=== PATIENT | female | born 1950 | race Caucasian/White ===

== ENCOUNTER 2021-05-17 10:30 | Outpatient (RCR) | payer MEDICARE, OTHER, SELFPAY ==
--- NOTE | 2021-03-28 23:14 | P.PNPS_ITS ---
TMS Daily Progress Note Daily TMS Progress Note Date of Service: 03/28/21 Week #: 2 Treatment #(12-04): 2 PHQ-9 Pre-Treatment (12-01): 18 PHQ-9 Most Recent (12-01): 18 Reviewed: TMS Tech Note Reviewed Verification: I have reviewed the TMS Painting Supervisor Note and agree with the contents. The patient remains a candidate to continue TMS treatment per pro tocol.
--- NOTE | 2021-03-29 23:07 | P.PNPS_ITS ---
TMS Daily Progress Note Daily TMS Progress Note Date of Service: 03/29/21 Week #: 1 Treatment #(12-04): 3 PHQ-9 Pre-Treatment (12-01): 18 PHQ-9 Most Recent (12-01): 18 Reviewed: TMS Tech Note Reviewed Verification: I have reviewed the TMS Supervisor Cigar Making Hand Note and agree with the contents. The patient remains a candidate to continue TMS treatment per pro tocol.
--- NOTE | 2021-03-30 07:53 | P.PNPS_ITS ---
TMS Daily Progress Note Daily TMS Progress Note Date of Service: 03/30/21 Week #: 1 Treatment #(12-04): 4 PHQ-9 Pre-Treatment (12-01): 18 PHQ-9 Most Recent (12-01): 18 Reviewed: TMS Tech Note Reviewed Verification: I have reviewed the TMS Health And Safety Coordinator Note and agree with the contents. The patient remains a candidate to continue TMS treatment per pro tocol.
--- NOTE | 2021-03-31 22:03 | HO.TMSDAILY2 ---
TMS Daily Progress Note Daily TMS Progress Note Date of Service: 03/31/21 Week #: 1 Treatment #(12-04): 5 PHQ-9 Pre-Treatment (12-01): 18 PHQ-9 Most Recent (12-01): 18 Reviewed: TMS Tech Note Reviewed Verification: I have reviewed the TMS Fish Cake Maker Note and agree with the contents. The patient remains a candidate to continue TMS treatment per protocol.
--- NOTE | 2021-04-01 23:02 | HO.TMSDAILY2 ---
TMS Daily Progress Note Daily TMS Progress Note Date of Service: 04/01/21 Week #: 2 Treatment #(12-04): 6 PHQ-9 Pre-Treatment (12-01): 18 PHQ-9 Most Recent (12-01): 18 Reviewed: TMS Tech Note Reviewed Verification: I have reviewed the TMS Fabricator Assembler Metal Products Note and agree with the contents. The patient remains a candidate to continue TMS treatment per protocol.
--- NOTE | 2021-04-05 22:00 | HO.TMSDAILY2 ---
TMS Daily Progress Note Daily TMS Progress Note Date of Service: 04/05/21 Week #: 2 Treatment #(12-04): 7 PHQ-9 Pre-Treatment (12-01): 18 PHQ-9 Most Recent (12-01): 18 Reviewed: TMS Tech Note Reviewed Verification: I have reviewed the TMS Engraving Press Operator Note and agree with the contents. The patient remains a candidate to continue TMS treatment per protocol.
--- NOTE | 2021-04-06 21:49 | HO.TMSDAILY2 ---
TMS Daily Progress Note Daily TMS Progress Note Date of Service: 04/06/21 Week #: 2 Treatment #(12-04): 8 PHQ-9 Pre-Treatment (12-01): 18 PHQ-9 Most Recent (12-01): 18 Reviewed: TMS Tech Note Reviewed Verification: I have reviewed the TMS Cloth Boil Off Machine Operator Note and agree with the contents. The patient remains a candidate to continue TMS treatment per protocol.
--- NOTE | 2021-04-07 20:48 | P.PNPS_ITS ---
TMS Daily Progress Note Daily TMS Progress Note Date of Service: 04/07/21 Week #: 2 Treatment #(12-04): 9 PHQ-9 Pre-Treatment (12-01): 18 PHQ-9 Most Recent (12-01): 18 Reviewed: TMS Tech Note Reviewed Verification: I have reviewed the TMS Speech Pathology Supervisor Note and agree with the contents. The patient remains a candidate to continue TMS treatment per pro tocol.
--- NOTE | 2021-04-08 22:45 | HO.TMSDAILY2 ---
TMS Daily Progress Note Daily TMS Progress Note Date of Service: 04/08/21 Week #: 2 Treatment #(12-04): 10 PHQ-9 Pre-Treatment (12-01): 18 PHQ-9 Most Recent (12-01): 18 Reviewed: TMS Tech Note Reviewed Verification: I have reviewed the TMS Charging Plug Placer Note and agree with the contents. The patient remains a candidate to continue TMS treatment per protocol.
--- NOTE | 2021-04-12 21:34 | HO.TMSDAILY2 ---
TMS Daily Progress Note Daily TMS Progress Note Date of Service: 04/12/21 Week #: 3 Treatment #(12-04): 12 PHQ-9 Pre-Treatment (12-01): 18 PHQ-9 Most Recent (12-01): 18 Reviewed: TMS Tech Note Reviewed Verification: I have reviewed the TMS Skilled Laborer Note and agree with the contents. The patient remains a candidate to continue TMS treatment per protocol.
--- NOTE | 2021-04-13 12:20 | HO.TMSDAILY2 ---
TMS Daily Progress Note Daily TMS Progress Note Date of Service: 04/13/21 Week #: 3 Treatment #(12-04): 13 PHQ-9 Pre-Treatment (12-01): 18 PHQ-9 Most Recent (12-01): 18 Reviewed: TMS Tech Note Reviewed Verification: I have reviewed the TMS Anesthesiologist Assistant Note and agree with the contents. The patient remains a candidate to continue TMS treatment per protocol.
--- NOTE | 2021-04-14 23:07 | P.PNPS_ITS ---
TMS Daily Progress Note Daily TMS Progress Note Date of Service: 04/14/21 Week #: 3 Treatment #(12-04): 14 PHQ-9 Pre-Treatment (12-01): 18 PHQ-9 Most Recent (12-01): 18 Reviewed: TMS Tech Note Reviewed Verification: I have reviewed the TMS Insulation Packer Note and agree with the contents. The patient remains a candidate to continue TMS treatment per pr otocol.
--- NOTE | 2021-04-18 22:14 | HO.TMSDAILY2 ---
TMS Daily Progress Note Daily TMS Progress Note Date of Service: 04/18/21 Week #: 4 Treatment #(12-04): 16 PHQ-9 Pre-Treatment (12-01): 18 PHQ-9 Most Recent (12-01): 18 Reviewed: TMS Tech Note Reviewed Verification: I have reviewed the TMS Beach Attendant Note and agree with the contents. The patient remains a candidate to continue TMS treatment per protocol.
--- NOTE | 2021-04-19 23:45 | HO.TMSDAILY2 ---
TMS Daily Progress Note Daily TMS Progress Note Date of Service: 04/19/21 Week #: 4 Treatment #(12-04): 17 PHQ-9 Pre-Treatment (12-01): 18 PHQ-9 Most Recent (12-01): 18 Reviewed: TMS Tech Note Reviewed Verification: I have reviewed the TMS Nurse Case Management Note and agree with the contents. The patient remains a candidate to continue TMS treatment per protocol.
--- NOTE | 2021-04-20 23:24 | HO.TMSDAILY2 ---
TMS Daily Progress Note Daily TMS Progress Note Date of Service: 04/26/21 Week #: 4 Treatment #(12-04): 18 PHQ-9 Pre-Treatment (12-01): 18 PHQ-9 Most Recent (12-01): 18 Reviewed: TMS Tech Note Reviewed Verification: I have reviewed the TMS Camelid Fiber Sorter Note and agree with the contents. The patient remains a candidate to continue TMS treatment per protocol.
--- NOTE | 2021-04-26 22:59 | HO.TMSDAILY2 ---
TMS Daily Progress Note Daily TMS Progress Note Date of Service: 04/21/21 Week #: 4 Treatment #(12-04): 19 PHQ-9 Pre-Treatment (12-01): 18 PHQ-9 Most Recent (12-01): 18 Reviewed: TMS Tech Note Reviewed Verification: I have reviewed the TMS Flame Annealing Machine Operator Note and agree with the contents. The patient remains a candidate to continue TMS treatment per protocol.
--- NOTE | 2021-04-26 23:02 | HO.TMSDAILY2 ---
TMS Daily Progress Note Daily TMS Progress Note Date of Service: 04/21/21 Week #: 4 Treatment #(12-04): 19 PHQ-9 Pre-Treatment (12-01): 18 PHQ-9 Most Recent (12-01): 18 Reviewed: TMS Tech Note Reviewed Verification: I have reviewed the TMS Plant Operations Manager Note and agree with the contents. The patient remains a candidate to continue TMS treatment per protocol.
--- NOTE | 2021-04-26 23:03 | P.PNPS_ITS ---
TMS Daily Progress Note Daily TMS Progress Note Date of Service: 04/22/21 Week #: 4 Treatment #(12-04): 20 PHQ-9 Pre-Treatment (12-01): 18 PHQ-9 Most Recent (12-01): 18 Reviewed: TMS Tech Note Reviewed Verification: I have reviewed the TMS Reclamation Supervisor Note and agree with the contents. The patient remains a candidate to continue TMS treatment per pr otocol.
--- NOTE | 2021-04-26 23:05 | P.PNPS_ITS ---
TMS Daily Progress Note Daily TMS Progress Note Date of Service: 04/26/21 Week #: 5 Treatment #(12-04): 22 PHQ-9 Pre-Treatment (12-01): 18 PHQ-9 Most Recent (12-01): 18 Reviewed: TMS Tech Note Reviewed Verification: I have reviewed the TMS Family Support Coordinator Note and agree with the contents. The patient remains a candidate to continue TMS treatment per pr otocol.
--- NOTE | 2021-04-28 11:30 | P.PNPS_ITS ---
TMS Daily Progress Note Daily TMS Progress Note Date of Service: 04/27/21 Week #: 5 Treatment #(12-04): 23 PHQ-9 Pre-Treatment (12-01): 18 PHQ-9 Most Recent (12-01): 18 Reviewed: TMS Tech Note Reviewed Verification: I have reviewed the TMS Registered Nurse Bone Marrow Transplant Note and agree with the contents. The patient remains a candidate to continue TMS treatment per pr otocol.
--- NOTE | 2021-04-28 11:32 | HO.TMSDAILY2 ---
TMS Daily Progress Note Daily TMS Progress Note Date of Service: 04/28/21 Week #: 5 Treatment #(12-04): 24 PHQ-9 Pre-Treatment (12-01): 18 PHQ-9 Most Recent (12-01): 18 Reviewed: TMS Tech Note Reviewed Verification: I have reviewed the TMS Secondary Special Education Teacher Note and agree with the contents. The patient remains a candidate to continue TMS treatment per protocol.
--- NOTE | 2021-04-28 13:15 | HO.TMSDAILY2 ---
TMS Daily Progress Note Daily TMS Progress Note Date of Service: 04/25/21 Week #: 5 Treatment #(12-04): 21 PHQ-9 Pre-Treatment (12-01): 18 PHQ-9 Most Recent (12-01): 7 Reviewed: TMS Tech Note Reviewed Verification: I have reviewed the TMS Inspector Pawnshop Detail Note and agree with the contents. The patient remains a candidate to continue TMS treatment per protocol.
--- NOTE | 2021-04-28 22:34 | HO.TMSDAILY2 ---
TMS Daily Progress Note Daily TMS Progress Note Date of Service: 04/28/21 Week #: 5 Treatment #(12-04): 24 PHQ-9 Pre-Treatment (12-01): 18 PHQ-9 Most Recent (12-01): 7 Reviewed: TMS Tech Note Reviewed Verification: I have reviewed the TMS [place] Ma[place] Note and agree with the contents. The patient remains a candidate to continue TMS treatment per protocol.
--- NOTE | 2021-04-29 22:48 | P.PNPS_ITS ---
TMS Daily Progress Note Daily TMS Progress Note Date of Service: 04/29/21 Week #: 5 Treatment #(12-04): 25 PHQ-9 Pre-Treatment (12-01): 18 PHQ-9 Most Recent (12-01): 7 Reviewed: TMS Tech Note Reviewed Verification: I have reviewed the TMS Senior Major Gifts Officer Note and agree with the contents. The patient remains a candidate to continue TMS treatment per p yani.
--- NOTE | 2021-05-02 22:22 | HO.TMSDAILY2 ---
TMS Daily Progress Note Daily TMS Progress Note Date of Service: 05/02/21 Week #: 6 Treatment #(12-04): 26 PHQ-9 Pre-Treatment (12-01): 18 PHQ-9 Most Recent (12-01): 7 Reviewed: TMS Tech Note Reviewed Verification: I have reviewed the TMS Evening Or Night Nurse Supervisor Note and agree with the contents. The patient remains a candidate to continue TMS treatment per protocol.
--- NOTE | 2021-05-03 22:28 | HO.TMSDAILY2 ---
TMS Daily Progress Note Daily TMS Progress Note Date of Service: 05/03/21 Week #: 6 Treatment #(12-04): 27 PHQ-9 Pre-Treatment (12-01): 18 PHQ-9 Most Recent (12-01): 7 Reviewed: TMS Tech Note Reviewed Verification: I have reviewed the TMS Salesperson Shoes Note and agree with the contents. The patient remains a candidate to continue TMS treatment per protocol.
--- NOTE | 2021-05-04 22:13 | P.PNPS_ITS ---
TMS Daily Progress Note Daily TMS Progress Note Date of Service: 05/04/21 Week #: 6 Treatment #(12-04): 28 PHQ-9 Pre-Treatment (12-01): 18 PHQ-9 Most Recent (12-01): 7 Reviewed: TMS Tech Note Reviewed Verification: I have reviewed the TMS Construction Safety Consultant Note and agree with the contents. The patient remains a candidate to continue TMS treatment per p yani.
--- NOTE | 2021-05-05 23:06 | HO.TMSDAILY2 ---
TMS Daily Progress Note Daily TMS Progress Note Date of Service: 05/05/21 Week #: 6 Treatment #(12-04): 29 PHQ-9 Pre-Treatment (12-01): 18 PHQ-9 Most Recent (12-01): 7 Reviewed: TMS Tech Note Reviewed Verification: I have reviewed the TMS Business Systems Architect Note and agree with the contents. The patient remains a candidate to continue TMS treatment per protocol.
--- NOTE | 2021-05-06 14:29 | HO.TMSDAILY2 ---
TMS Daily Progress Note Daily TMS Progress Note Date of Service: 05/06/21 Week #: 6 Treatment #(12-04): 30 PHQ-9 Pre-Treatment (12-01): 18 PHQ-9 Most Recent (12-01): 7 Reviewed: TMS Tech Note Reviewed Verification: I have reviewed the TMS Orderly Note and agree with the contents. The patient remains a candidate to continue TMS treatment per protocol.
--- NOTE | 2021-05-06 23:32 | P.PNPS_ITS ---
TMS Daily Progress Note Daily TMS Progress Note Date of Service: 05/06/21 Week #: 6 Treatment #(12-04): 30 PHQ-9 Pre-Treatment (12-01): 18 PHQ-9 Most Recent (12-01): 7 Reviewed: TMS Tech Note Reviewed Verification: I have reviewed the TMS Agricultural Production Engineer Note and agree with the contents. The patient remains a candidate to continue TMS treatment per p yani.
--- NOTE | 2021-05-09 14:31 | W.PM.TMSCONS ---
History of Present Illness General Data Date of Service: 03/23/21 Reason for consult: treatment resistant depression Requesting provider: Alan Martin History of Present Illness the patient is a 71-year-old female with a long history of recurrent depression over the past year or more significantly treatment resistant depression with history of panic attacks originally associated with Crohn's disease. Meds/Allergies Allergies Allergies Allergy/AdvReac Type Severity Reaction Status Date / Time azathioprine [Imuran] Allergy Unknown Pancreatiti Verified 06/03/20 00:00 s metronidazole [Flagyl] Allergy Unknown Verified 06/03/20 00:00 Assessment & Plan Greater than 50% of the session was spent on counseling and/or coordination of care
--- NOTE | 2021-05-10 22:01 | P.PNPS_ITS ---
TMS Daily Progress Note Daily TMS Progress Note Date of Service: 05/10/21 Week #: 7 Treatment #(12-04): 31 PHQ-9 Pre-Treatment (12-01): 18 PHQ-9 Most Recent (12-01): 7 Reviewed: TMS Tech Note Reviewed Verification: I have reviewed the TMS Inspector Watch Parts Note and agree with the contents. The patient remains a candidate to continue TMS treatment per p yani.
--- NOTE | 2021-05-11 17:59 | HO.TMSDAILY2 ---
TMS Daily Progress Note Daily TMS Progress Note Date of Service: 05/11/21 Week #: 7 Treatment #(12-04): 32 PHQ-9 Pre-Treatment (12-01): 18 PHQ-9 Most Recent (12-01): 7 Reviewed: TMS Tech Note Reviewed Verification: I have reviewed the TMS Private Branch Exchange Service Advisor Note and agree with the contents. The patient remains a candidate to continue TMS treatment per protocol.
--- NOTE | 2021-05-12 17:59 | HO.TMSDAILY2 ---
TMS Daily Progress Note Daily TMS Progress Note Date of Service: 05/12/21 Week #: 7 Treatment #(12-04): 33 PHQ-9 Pre-Treatment (12-01): 18 PHQ-9 Most Recent (12-01): 7 Reviewed: TMS Tech Note Reviewed Verification: I have reviewed the TMS Investment Associate Note and agree with the contents. The patient remains a candidate to continue TMS treatment per protocol.
--- NOTE | 2021-05-13 23:56 | HO.TMSDAILY2 ---
TMS Daily Progress Note Daily TMS Progress Note Date of Service: 05/16/21 Week #: 8 Treatment #(12-04): 34 PHQ-9 Pre-Treatment (12-01): 18 PHQ-9 Most Recent (12-01): 7 Reviewed: TMS Tech Note Reviewed Verification: I have reviewed the TMS Small Machine Bindery Operator Note and agree with the contents. The patient remains a candidate to continue TMS treatment per protocol.
--- NOTE | 2021-05-16 22:33 | HO.TMSDAILY2 ---
TMS Daily Progress Note Daily TMS Progress Note Date of Service: 05/16/21 Week #: 8 Treatment #(12-04): 35 PHQ-9 Pre-Treatment (12-01): 18 PHQ-9 Most Recent (12-01): 7 Reviewed: TMS Tech Note Reviewed Verification: I have reviewed the TMS Director Of Revenue Note and agree with the contents. The patient remains a candidate to continue TMS treatment per protocol.
--- NOTE | 2021-05-17 23:20 | HO.TMSDAILY2 ---
TMS Daily Progress Note Daily TMS Progress Note Date of Service: 05/17/21 Week #: 7 Treatment #(12-04): 36 PHQ-9 Pre-Treatment (12-01): 18 PHQ-9 Most Recent (12-01): 7 Reviewed: TMS Tech Note Reviewed Verification: I have reviewed the TMS Ticket Worker Note and agree with the contents. The patient remains a candidate to continue TMS treatment per protocol.
--- NOTE | 2021-05-17 23:20 | HO.TMSDCTER ---
TMS Discharge-Termination Chart Review Treatments Completed: 36 Initial MT%: 80% Final MT%: 120% Was Remapping Required: Yes Clinical Evaluation/Review PHQ-9 Pre-Treatment (1-): 18 PHQ-9 Post-Treatment (-): 6 BRADEN-7 Pre-Treatment (0-21): 17 BRADEN-7 Most Recent (0-21): 6 CGI-I Initial: 0 = Not Assessed CGI-I Post Treatment: 1 = Very Much Improved Q-LES-Q-SF Pre-Treatment: 38 Q-LES-Q-SF Post-Treatment: 55 Adverse Effects Local Pain/Discomfort: Yes Headache: No Facial Pain: No Seizure: No Impression Impression: PT MUCH IMPROVED TOLERATED [place] Recommendations TMS: Discontinue Medication Changes: OLANZAPINE TRINTELLIX Follow-up w/ Prescriber: HALEY
--- NOTE | 2021-05-22 19:06 | P.PNPS_ITS ---
TMS Daily Progress Note Daily TMS Progress Note Date of Service: 03/25/21 Week #: 1 Treatment #(12-04): 1 PHQ-9 Pre-Treatment (12-01): 20 PHQ-9 Most Recent (12-01): 20 Reviewed: TMS Tech Note Reviewed Verification: late entry for 03/25/21 mapping completed I have reviewed the TMS Public Utilities Sales Representative Note and agree with the contents. The patient remains a candidate to continue TMS treatment per protocol.
--- NOTE | 2021-06-05 19:43 | W.PM.TMSCONS ---
History of Present Illness General Data Date of Service: 03/23/21 Reason for consult: TMS EVAL Requesting provider: Alan Martin History of Present Illness THE PATIENT IS A 71-YEAR-OLD FEMALE WHO HISTORY OF PANIC DISORDER, GENERALIZED ANXIETY AND RECURRENT DEPRESSION. HAS BEEN IN A SIGNIFICANT DEPRESSION FOR AT LEAST THE PAST YEAR HER. HER SHE HAS HAD LOW ENERGY DIFFICULTY FUNCTIONING OFTEN SPENDING MUCH OF HER TIME IN THE HOUSE. CONSTANT ANXIETY AND WORRY AND RUMINATION. PERIODS WHERE SHE FOUND IT EXTREMELY DIFFICULT TO CONCENTRATE AND PUT HER THOUGHTS TOGETHER. SHE HAS HAD DIFFICULTY SINCE SHELTER AND WENT OFF SERTRALINE AND HAS NOT BEEN STABLE SINCE THEN. SHE HAS HAD SIGNIFICANT TRIALS SERTRALINE, FLUOXETINE HAD AGITATION, MIRTAZAPINE WAS UNABLE TO TOLERATE AND NORTRIPTYLINE WHICH WAS ALSO NOT SUCCESSFUL. PATIENT HAD ANTIPSYCHOTIC AUGMENTATION WITH SEROQUEL WHICH WAS ALSO NOT EFFECTIVE. PATIENT CURRENTLY HAS BEEN ON TRINTELLIX UP TO 10 MG ALPRAZOLAM DAVONTE 0.25 T.I.D. ATENOLOL HER TO FOR ANXIETY WHICH HAS BEEN SOMEWHAT HELPFUL. CURRENTLY ON OLANZAPINE TO 5 MG A DAY. SHE CONTINUES TO BE HOPELESS HELPLESS MINIMALLY FUNCTIONING WITH NO QUALITY OF LIFE . TRIALS OF COGNITIVE BEHAVIOR THERAPY MEDITATION BEHAVIORAL ACTIVATION HAVE ONLY BEEN PARTIALLY SUCCESSFUL. SEEING DR. ACOSTA FOR PSYCHOTHERAPY Past Psychiatric History/Medication Trials: PAST HISTORY OF PANIC DISORDER CHRONIC ANXIETY SYMPTOMS AND DYSTHYMIA BUT WAS ABLE TO FUNCTION AT WORK AND AT HOME GENERALLY WAS MANAGEABLE [facility] Medical History (Updated 06/05/21 @ 20:00 by Alan Martin MD) Generalized anxiety disorder Panic disorder [episodic paroxysmal anxiety] Narrative: HISTORY OF CROHN'S DISEASE QUESTION PANCREATIC NODULE Narrative: HISTORY OF RESECTION Family History: HISTORY OF DEPRESSION AND ANXIETY Social History: PATIENT LIVES WITH HER HAS 2 CHILDREN 1 IN [place]. HAS A SISTER THAT SHE PARTIALLY SUPPORTS IN [place]. 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 [employer] Substance History: NONE Trauma History: NONE Meds/Allergies Allergies Allergies Allergy/AdvReac Type Severity Reaction Status Date / Time azathioprine [Imuran] Allergy Unknown Pancreatiti Verified 06/03/20 00:00 s metronidazole [Flagyl] Allergy Unknown Verified 06/03/20 00:00 Mental Status Exam Mental Status Exam Patient Appearance: Well Grooomed Patient Orientation: Person, Place, Time and Situation Level of Consciousness: Awake and Appropriate Patient Behavior: Appropriate and Anxious Mood Description: Anxious, Sad and Apprehensive Affect Description: Depressed, Anxious and Apprehensive Patient Cognition Impaired: No Ability to Follow Directions: Good Speech Pattern: Clear Memory Description: Intact Hallucinations: None Delusions: Not Present Thought Process: Intact and Rumination Thought Content: positive for Obsessional Thoughts, negative for Suicidal Ideation or positive for Homicidal Ideation Depressive Symptoms: Increased Anxiety, Insomnia, Loss of Int. in Activity, Feelings of Worthlessness, Hopelessness and Difficulty Concentrating Judgement: Good Assessment & Plan Assessment & Plan (1) Depression, major, severe recurrence: Status: Acute Code(s): F33.2 - Major depressive disorder, recurrent severe without psychotic features (2) Generalized anxiety disorder: Status: Acute Code(s): F41.1 - Generalized anxiety disorder (3) Panic disorder [episodic paroxysmal anxiety]: Status: Acute Code(s): F41.0 - Panic disorder [episodic paroxysmal anxiety] Recommendations: PATIENT HAS A DIAGNOSIS OF MAJOR DEPRESSION RECURRENT SEVERE THAT HAS FOR A YEAR NOW NOT RESPONDED TO MULTIPLE PER MUTATIONS OF MEDICATION BEHAVIORAL ACTIVATION AND THERAPY. THERE ARE NO CONTRAINDICATIONS TO TMS NO HISTORY OF HEAD OR NECK SURGERY BRAIN LESION SEIZURE DISORDER PACEMAKER WERE COCHLEAR IMPLANT. PATIENT NEEDED MUCH REASSURANCE REGARDING TMS QUESTIONS ANSWERED REVIEWED WITH PATIENT AND CONTINUE TRINTELLIX LOW-DOSE ZYPREXA SCHEDULE FOR TMS AVAILABLE Greater than 50% of the session was spent on counseling and/or coordination of care
== END 2021-05-17 15:19 | disposition home or self-care (01) ==
LOC: HO.PTMS 10:30
PROVIDERS: Visit Provider Psychiatry & Neurology Psychiatry
DX: F33.2 Major depressive disorder, recurrent severe without psychotic features (principal); F41.1 Generalized anxiety disorder; F41.0 Panic disorder [episodic paroxysmal anxiety]
CPT/HCPCS: 90867; 90868

== ENCOUNTER 2021-09-19 16:15 | Outpatient (REF) | payer MEDICARE, OTHER, SELFPAY ==
[2021-09-19 16:52] LABS: Estimated Average Glucose 100 mg/dL; Hemoglobin A1c % 5.1 %
== END 2021-09-19 16:16 | disposition home or self-care (01) ==
LOC: HO.LAB 16:15
PROVIDERS: Visit Provider Psychiatry & Neurology Psychiatry
DX: F41.0 Panic disorder [episodic paroxysmal anxiety] (principal)
CPT/HCPCS: 36415; 83036

== ENCOUNTER 2022-09-05 12:22 | Outpatient (REF) | payer MEDICARE, OTHER, SELFPAY ==
[2022-09-05 13:11] LABS: Alanine Aminotransferase 7 U/L (0-31); Albumin Level 4.1 g/dL (3.5-5.0); Alkaline Phosphatase 61 U/L (39-117); Anion Gap 16 (12-20); Aspartate Amino Transferase 14 U/L (5-31); Blood Urea Nitrogen 14 mg/dL (9-16); Calcium 9.8 mg/dL (8.4-10.2); Carbon Dioxide 26 mmol/L (22-29); Chloride 102 mmol/L (96-108); Estimated Glomerular Filt Rate > 60; Glucose Random 125 mg/dL (60-115); Potassium 4.3 mmol/L (3.3-5.1); Sodium 140 mmol/L (135-145); Total Protein 6.7 g/dL (6.5-8.0)
[2022-09-05 13:28] LABS: Bilirubin Total 0.3 mg/dL (0.0-1.0)
== END 2022-09-05 12:23 | disposition home or self-care (01) ==
LOC: HO.LAB 12:22
PROVIDERS: PCP Internal Medicine; Visit Provider Psychiatry & Neurology Psychiatry
DX: K50.90 Crohn's disease, unspecified, without complications (principal)
CPT/HCPCS: 36415; 80053; 99212

== ENCOUNTER → 2022-11-20 11:05 | Outpatient (BNVA) | payer MEDICARE, OTHER, SELFPAY | PROVIDERS: PCP Internal Medicine; Visit Provider Psychiatry & Neurology Psychiatry | DX: F33.2 Major depressive disorder, recurrent severe without psychotic features (principal); F41.1 Generalized anxiety disorder; F41.0 Panic disorder [episodic paroxysmal anxiety]; E04.1 Nontoxic single thyroid nodule; K50.90 Crohn's disease, unspecified, without complications | CPT/HCPCS: 99212 ==

== ENCOUNTER → 2023-02-05 16:23 | Outpatient (BNVA) | payer MEDICARE, OTHER, SELFPAY | PROVIDERS: PCP Internal Medicine; Visit Provider Psychiatry & Neurology Psychiatry | DX: F41.0 Panic disorder [episodic paroxysmal anxiety] (principal); F41.1 Generalized anxiety disorder; F33.2 Major depressive disorder, recurrent severe without psychotic features; F33.40 Major depressive disorder, recurrent, in remission, unspecified; K50.90 Crohn's disease, unspecified, without complications | CPT/HCPCS: 99212 ==

== ENCOUNTER 2023-05-21 15:25 | Outpatient (AMB) | payer MEDICARE, OTHER, SELFPAY ==
--- NOTE | 2023-05-21 16:36 | MHC.OFFVISPS ---
Intake Intake Visit Reasons: depression Allergies azathioprine [Imuran] Allergy (Unknown, Verified 06/03/20 00:00) Pancreatitis metronidazole [Flagyl] Allergy (Unknown, Verified 06/03/20 00:00) Medication List - Last Reconciled 05/21/23 by Alan Martin MD alprazolam 1/2-1 orally 3 times a day PRN; atenolol 25 mg PO DAILY cyanocobalamin (vitamin B-12) 1,000 mcg subcut estradiol (Yuvafem) 0 mcg vaginal DAILY folic acid 1 mg PO DAILY mesalamine ER (Pentasa) 1,000 mg PO TID olanzapine (Zyprexa) 2.5 mg PO DAILY 30 days vortioxetine (Trintellix) 20 mg PO DAILY HPI- Psychiatric Chief Complaint: depression HPI Narrative: Patient has had more symptoms of dysthymia more difficulty enjoying things motivating herself and preoccupation. More anxiety with eating and preoccupation with food. She does have chronic mild symptoms of pros state Crohn's disease which might be contributing factor had been doing better on low-dose olanzapine had done better after TMS Tx appears to be more dysthymic PHQ 917 clearly is having more been impaired quality of life and functioning she is taking L methyl folate Past Psychiatric History: The patient has a history of chronic anxiety panic disorder and depression which developed after surgery for Crohn's disease a partial colon resection many years ago. Was stable for many years then developed a treatment resistant agitated depression that eventually responded to a combination of Trintellix 20 mg olanzapine alprazolam and TMS otherwise had failed multiple other antidepressant trial Mental Status Exam Mental Status Exam Patient Appearance: Well Grooomed Patient Orientation: Person, Place, Time and Situation Level of Consciousness: Awake and Appropriate Patient Behavior: Appropriate Mood Description: Depressed, Blunted and Apprehensive Affect Description: Appropriate and Constricted Patient Cognition Impaired: No Ability to Follow Directions: Good Speech Pattern: Clear Memory Description: Intact Hallucinations: None Delusions: Not Present Thought Process: Intact and Goal Oriented Thought Content: positive for Goal Oriented, positive for Preoccupation, negative for Suicidal Ideation or negative for Homicidal Ideation Depressive Symptoms: Increased Irritability, Difficulty Sleeping, Loss of Int. in Activity, Hopelessness, Increased Fatigue, Loss of Energy and Difficulty Concentrating Judgement and Insight: Morbid preoccupation difficulty managing her time and enjoying things Assessment and Plan Assessment & Plan (1) Major depressive disorder, recurrent: Status: Acute Code(s): F33.9 - Major depressive disorder, recurrent, unspecified (2) Generalized anxiety disorder: Status: Acute Code(s): F41.1 - Generalized anxiety disorder Plan The patient has been increasingly withdrawn poor appetite difficulty enjoying things problems motivation attention feels overwhelmed at times particularly with medical concerns. Can be somewhat ruminating regarding illness being alone. We discussed restarting olanzapine 1.25 mg for 2 weeks if not significantly improved good to 2.5 mg strongly reconsider TMS treatment which the patient brought patient had done quite well after course of TMS Continue Trintellix alprazolam review labs from PCP Counseling and coordination of Care Pt. Self Management counseling: Maintenance-social rhythm and Cognitive restructuring Details-Self Mgmt counseling: Her patient more preoccupied enjoying things less difficulty with sleep and appetite difficulty structuring her time anhedonic Medication management counseling: Effectiveness Details-Med Mgmt counseling: Discussed restarting olanzapine which seem to be helpful with anxiety symptoms and no side effects have been noted given relative risk of tardive dyskinesia versus quality of life appears to make sense to restart would strongly consider restarting TMS Diagnosis and Prognosis Counseling: Accuracy of diagnosis, Prognosis over time and Adequacy of current interventions Details-Diagnosis/Prognosis counseling: Discussed restarting olanzapine review labs patient recently had at PCP strongly consider restart of TMS had been significantly improved after TMS treatment Details: I spent [38] minutes reviewing the record, seeing the patient and documenting in the medical record. Counseling provided to the patient/caregiver as outlined below. Addressed patient/caregiver concerns regarding current medication regime including effective adherence. Addressed patient/caregiver concerns regarding diagnosis and prognosis including accuracy of diagnosis, prognosis over time, impact of diagnosis. Addressed patient/caregiver concerns regarding impact of recent stressors. [facility] Medical History (Updated 05/27/23 @ 16:25 by Alan Martin MD) Crohn disease Generalized anxiety disorder Panic disorder [episodic paroxysmal anxiety] Thyroid nodule Social History: PATIENT LIVES WITH HER HAS 2 CHILDREN 1 IN [place]. HAS A SISTER THAT SHE PARTIALLY SUPPORTS IN [place]. 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
== END 2023-05-21 16:28 | disposition home or self-care (01) ==
LOC: HO.HOP 15:25
PROVIDERS: PCP Internal Medicine; Visit Provider Psychiatry & Neurology Psychiatry
DX: F33.9 Major depressive disorder, recurrent, unspecified (principal); F41.1 Generalized anxiety disorder
CPT/HCPCS: 90833; 99213

== ENCOUNTER → 2023-05-21 15:25 | Outpatient (BNVA) | payer MEDICARE, OTHER, SELFPAY | PROVIDERS: PCP Internal Medicine; Visit Provider Psychiatry & Neurology Psychiatry | DX: F33.9 Major depressive disorder, recurrent, unspecified (principal); F41.1 Generalized anxiety disorder | CPT/HCPCS: 90833; 99212 ==

== ENCOUNTER 2023-07-06 11:06 | Outpatient (AMB) | payer MEDICARE, OTHER, SELFPAY ==
--- NOTE | 2023-07-06 12:05 | A.OFFPSYCH_ITS ---
Intake Intake Visit Reasons: depression Allergies azathioprine [Imuran] Allergy (Unknown, Verified 06/03/20 00:00) Pancreatitis metronidazole [Flagyl] Allergy (Unknown, Verified 06/03/20 00:00) HPI- Psychiatric Chief Complaint: depression HPI Narrative: Patient is seen with her . The patient is less depressed but remains ruminating poor appetite. She has been better on olanzapine 1.25 mg difficulty with appetite does best when she is keeping herself busy. Difficulty enjoying things. Remains somewhat internally preoccupied. No new medical problems. No abnormal movements noted. Past Psychiatric History: The patient has a history of chronic anxiety panic disorder and depression which developed after surgery for Crohn's disease a partial colon resection many years ago. Was stable for many years then developed a treatment resistant agitated depression that eventually responded to a combination of Trintellix 20 mg olanzapine alprazolam and TMS otherwise had failed multiple other antidepressant trial Mental Status Exam Mental Status Exam Patient Appearance: Well Grooomed Patient Orientation: Person, Place, Time and Situation Level of Consciousness: Awake and Appropriate Patient Behavior: Appropriate and Good Eye Contact Mood Description: Anxious and Blunted Affect Description: Appropriate and Constricted Patient Cognition Impaired: No Ability to Follow Directions: Good Speech Pattern: Clear Memory Description: Intact Hallucinations: None Delusions: Not Present Thought Process: Intact and Goal Oriented Thought Content: positive for Goal Oriented, positive for Preoccupation, negative for Suicidal Ideation or negative for Homicidal Ideation Depressive Symptoms: Difficulty Sleeping, Loss of Int. in Activity, Hopelessness, Increased Fatigue, Loss of Energy and Difficulty Concentrating Judgement and Insight: Morbid preoccupation difficulty managing her time and enjoying things Assessment and Plan Assessment & Plan (1) Major depressive disorder, recurrent: Status: Acute Code(s): F33.9 - Major depressive disorder, recurrent, unspecified (2) Crohn disease: Status: Acute Code(s): K50.90 - Crohn's disease, unspecified, without complications (3) Panic disorder [episodic paroxysmal anxiety]: Status: Acute Code(s): F41.0 - Panic disorder [episodic paroxysmal anxiety] (4) Generalized anxiety disorder: Status: Acute Code(s): F41.1 - Generalized anxiety disorder Plan Discussed L methyl folate daily walk potential increase olanzapine 2.5 mg decreased appetite could also be contributed to by Trintellix 20 mg patient does not want try lowering the dose. Discussed option of TMS Counseling and coordination of Care Pt. Self Management counseling: Behavior activation Medication management counseling: Effectiveness, Side effects and Dosing range Diagnosis and Prognosis Counseling: Problematic behaviors secondary to diagnosis and Adequacy of current interventions Details: I spent 37] minutes reviewing the record, seeing the patient and documenting in the medical record. Counseling provided to the patient/caregiver as outlined below. Addressed patient/caregiver concerns regarding current medication regime including effective adherence. Addressed patient/caregiver concerns regarding diagnosis and prognosis including accuracy of diagnosis, prognosis over time, impact of diagnosis. Addressed patient/caregiver concerns regarding impact of recent stressors. [facility] Medical History (Updated 05/27/23 @ 16:25 by Alan Martin MD) Crohn disease Generalized anxiety disorder Panic disorder [episodic paroxysmal anxiety] Thyroid nodule Social History: PATIENT LIVES WITH HER HAS 2 CHILDREN 1 IN [place]. HAS A SISTER THAT SHE PARTIALLY SUPPORTS IN [place]. 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
== END 2023-07-06 11:58 | disposition home or self-care (01) ==
LOC: HO.HOP 11:06
PROVIDERS: PCP Internal Medicine; Visit Provider Psychiatry & Neurology Psychiatry
DX: F33.9 Major depressive disorder, recurrent, unspecified (principal); K50.90 Crohn's disease, unspecified, without complications; F41.0 Panic disorder [episodic paroxysmal anxiety]; F41.1 Generalized anxiety disorder
CPT/HCPCS: 90833; 99213

== ENCOUNTER → 2023-07-06 11:06 | Outpatient (BNVA) | payer MEDICARE, OTHER, SELFPAY | PROVIDERS: PCP Internal Medicine; Visit Provider Psychiatry & Neurology Psychiatry | DX: F33.9 Major depressive disorder, recurrent, unspecified (principal); F41.0 Panic disorder [episodic paroxysmal anxiety]; F41.1 Generalized anxiety disorder; K50.90 Crohn's disease, unspecified, without complications | CPT/HCPCS: 90833; 99212 ==

== ENCOUNTER → 2023-12-10 11:11 | Outpatient (BNVA) | payer MEDICARE, OTHER, SELFPAY | PROVIDERS: PCP Internal Medicine; Visit Provider Psychiatry & Neurology Psychiatry ==

== ENCOUNTER 2024-04-08 11:05 | Outpatient (AMB) | payer MEDICARE, OTHER, SELFPAY ==
--- NOTE | 2024-04-08 11:46 | A.OFFPSYCH_ITS ---
Intake Intake Visit Reasons: depression Allergies azathioprine [Imuran] Allergy (Unknown, Verified 06/03/20 00:00) Pancreatitis metronidazole [Flagyl] Allergy (Unknown, Verified 06/03/20 00:00) Medication List - Last Reconciled 04/08/24 by Alan Martin MD alprazolam 1/2-1 orally 3 times a day PRN; atenolol 25 mg PO DAILY cyanocobalamin (vitamin B-12) 1,000 mcg subcut doxepin 3 - 6 mg (1 - 2 x 3 mg) PO BEDTIME PRN estradiol (Yuvafem) 0 mcg vaginal DAILY folic acid 1 mg PO DAILY mesalamine ER (Pentasa) 1,000 mg PO TID olanzapine (Zyprexa) 2.5 mg PO DAILY 30 days Trintellix (vortioxetine) 20 mg PO DAILY NS HPI- Psychiatric Chief Complaint: depression HPI Narrative: Patient seen psychiatric hospitalization has generally been doing okay feels much more like herself then over the past few years. Still has some difficulty at times with sleep. 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 Was stable for many years then developed a treatment resistant agitated depression that eventually responded to a combination of Trintellix 20 mg olanzapine alprazolam and TMS otherwise had failed multiple other antidepressant trial Assessment and Plan Assessment & Plan (1) Major depressive disorder, recurrent, in remission: Status: Acute Code(s): F33.40 - Major depressive disorder, recurrent, in remission, unspecified (2) Panic disorder [episodic paroxysmal anxiety]: Status: Acute Code(s): F41.0 - Panic disorder [episodic paroxysmal anxiety] (3) Generalized anxiety disorder: Status: Acute Code(s): F41.1 - Generalized anxiety disorder Plan We have discussed trying to taper down on alprazolam to lowest effective dose over time patient does have chronic panic attacks not fully treated with antidepressants were coping strategies breathing techniques. We have discussed trying to get off olanzapine she does have residual sleep difficulty and discuss ed the use of doxepin as needed low-dose risks benefits alternatives reviewed Patient generally over time has had a marked improvement in mood and functioning Medications: New doxepin 3 - 6 mg (1 - 2 x 3 mg) PO BEDTIME PRN 60 tabs 1RF sleep doxepin 3 mg PO BEDTIME PRN 30 tabs 2RF sleep doxepin 3 mg PO BEDTIME PRN 30 tabs 2RF sleep Changed From vortioxetine 20 mg PO DAILY 90 tabs 0RF To Trintellix (vortioxetine) 20 mg PO DAILY 90 tabs 1RF NS From alprazolam 1/2-1 orally 3 times a day PRN; 70 tabs 3RF anxiety To alprazolam 1/2-1 orally 3 times a day PRN; 70 tabs 3RF anxiety Counseling and coordination of Care Details-Med Mgmt counseling: Risks benefits and alternatives reviewed discussed potential long-term risks with chronic use of benzodiazepines and cognitive impairment/dementia wrist. Doxepin 3 mg bedtime up to 6 mg try and discontinue olanzapine try and lower alprazolam to 0.25 at bedtime continue Trintellix. Patient is functioning continues to be at a significantly improved level Diagnosis and Prognosis Counseling: Prognosis over time, Impact of diagnosis on life functions and Adequacy of current interventions Details: I spent [30] minutes reviewing the record, seeing the patient and documenting in the medical record. Counseling provided to the patient/caregiver as outlined below. Addressed patient/caregiver concerns regarding current medication regime including effective adherence. Addressed patient/caregiver concerns regarding diagnosis and prognosis including accuracy of diagnosis, prognosis over time, impact of diagnosis. Addressed patient/caregiver concerns regarding impact of recent stressors. [facility] Medical History (Updated 05/27/23 @ 16:25 by Alan Martin MD) Thyroid nodule Crohn disease Panic disorder [episodic paroxysmal anxiety] Generalized anxiety disorder Social History: PATIENT LIVES WITH HER HAS 2 CHILDREN 1 IN [place]. HAS A SISTER THAT SHE PARTIALLY SUPPORTS IN [place]. 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
== END 2024-04-08 11:49 | disposition home or self-care (01) ==
LOC: HO.HOP 11:05
PROVIDERS: PCP Internal Medicine; Visit Provider Psychiatry & Neurology Psychiatry
DX: F33.40 Major depressive disorder, recurrent, in remission, unspecified (principal); F41.0 Panic disorder [episodic paroxysmal anxiety]; F41.1 Generalized anxiety disorder
CPT/HCPCS: 99214

== ENCOUNTER → 2024-04-08 11:05 | Outpatient (BNVA) | payer MEDICARE, OTHER, SELFPAY | PROVIDERS: PCP Internal Medicine; Visit Provider Psychiatry & Neurology Psychiatry | DX: F33.40 Major depressive disorder, recurrent, in remission, unspecified (principal); F41.0 Panic disorder [episodic paroxysmal anxiety]; F41.1 Generalized anxiety disorder; Z79.899 Other long term (current) drug therapy | CPT/HCPCS: 99212 ==

== ENCOUNTER 2024-05-27 11:10 | Outpatient (AMB) | payer MEDICARE, OTHER, SELFPAY ==
--- NOTE | 2024-05-27 11:33 | A.OFFPSYCH_ITS ---
Intake Intake Visit Reasons: depression Allergies azathioprine [Imuran] Allergy (Unknown, Verified 06/03/20 00:00) Pancreatitis metronidazole [Flagyl] Allergy (Unknown, Verified 06/03/20 00:00) Medication List - Last Reconciled 06/17/24 by Alan Martin MD alprazolam 1/2-1 orally 3 times a day PRN; atenolol 25 mg PO DAILY cyanocobalamin (vitamin B-12) 1,000 mcg subcut doxepin 6 mg PO BEDTIME PRN estradiol (Yuvafem) 0 mcg vaginal DAILY folic acid 1 mg PO DAILY mesalamine ER (Pentasa) 1,000 mg PO TID olanzapine (Zyprexa) 2.5 mg PO DAILY 30 days Trintellix (vortioxetine) 20 mg PO DAILY NS HPI- Psychiatric Chief Complaint: depression HPI Narrative: Patient seen with chart reviewed. Patient has been somewhat more ruminative feeling not supported in the home free on results that she had helped develop. 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 Was stable for many years then developed a treatment resistant agitated depression that eventually responded to a combination of Trintellix 20 mg olanzapine alprazolam and TMS otherwise had failed multiple other antidepressant trial Mental Status Exam Mental Status Exam Patient Appearance: Well Grooomed Patient Orientation: Person, Place, Time and Situation Level of Consciousness: Awake and Appropriate Patient Behavior: Appropriate and Good Eye Contact Mood Description: Anxious and Blunted Affect Description: Appropriate and Constricted Patient Cognition Impaired: No Ability to Follow Directions: Good Speech Pattern: Clear Memory Description: Intact Hallucinations: None Delusions: Not Present Thought Process: Intact and Goal Oriented Thought Content: positive for Goal Oriented, positive for Preoccupation, negative for Suicidal Ideation or negative for Homicidal Ideation Depressive Symptoms: Difficulty Sleeping, Loss of Int. in Activity, Increased Fatigue, Loss of Energy and Difficulty Concentrating Judgement and Insight: Morbid preoccupation difficulty managing her time and enjoying things Assessment and Plan Assessment & Plan (1) Major depressive disorder, recurrent: Status: Acute Code(s): F33.9 - Major depressive disorder, recurrent, unspecified (2) Crohn disease: Status: Acute Code(s): K50.90 - Crohn's disease, unspecified, without complications (3) Thyroid nodule: Status: Acute Code(s): E04.1 - Nontoxic single thyroid nodule (4) Generalized anxiety disorder: Status: Acute Code(s): F41.1 - Generalized anxiety disorder Plan The patient returns for psychiatric follow-up with her . 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 We discussed multiple different strategies strongly urged patient to return at least briefly for counseling with Dr. Trevino Can increase olanzapine to 2.5 mg if patient finds helpful doxepin 6 mg from 3 mg at bedtime alprazolam 0.25 t.i.d. She has pending results on some lab work that she has had through [facility]. Has been taking olanzapine 1.25 mg increased to 2.5 mg if not improved periods strongly urged consideration of TMS which had helped previously. Patient needs to figure out potential change in her work situation this has been a labor of love for her Medications: Changed From doxepin 3 mg PO BEDTIME PRN 30 tabs 2RF sleep To doxepin 6 mg PO BEDTIME PRN 30 tabs 2RF sleep Refilled atenolol 25 mg PO DAILY 90 tabs 1RF Counseling and coordination of Care Details-Self Mgmt counseling: Issues related to work stress difficulty in considering change Medication management counseling: Effectiveness, Side effects and Dosing range Diagnosis and Prognosis Counseling: Adequacy of current interventions Details-Diagnosis/Prognosis counseling: Strongly urged consideration of TMS follow-up 4-6 weeks Details: I spent [40] minutes reviewing the record, seeing the patient and documenting in the medical record. Counseling provided to the patient/caregiver as outlined below. Addressed patient/caregiver concerns regarding current medication regime including effective adherence. Addressed patient/caregiver concerns regarding diagnosis and prognosis including accuracy of diagnosis, prognosis over time, impact of diagnosis. Addressed patient/caregiver concerns regarding impact of recent stressors. [facility] Medical History (Updated 05/27/23 @ 16:25 by Alan Martin MD) Thyroid nodule Crohn disease Panic disorder [episodic paroxysmal anxiety] Generalized anxiety disorder Social History: PATIENT LIVES WITH HER HAS 2 CHILDREN 1 IN [place]. HAS A SISTER THAT SHE PARTIALLY SUPPORTS IN [place]. 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
== END 2024-05-27 16:11 | disposition home or self-care (01) ==
LOC: HO.HOP 11:10
PROVIDERS: PCP Internal Medicine; Visit Provider Psychiatry & Neurology Psychiatry
DX: F33.9 Major depressive disorder, recurrent, unspecified (principal); K50.90 Crohn's disease, unspecified, without complications; E04.1 Nontoxic single thyroid nodule; F41.1 Generalized anxiety disorder
CPT/HCPCS: 90833; 99213

== ENCOUNTER → 2024-05-27 11:10 | Outpatient (BNVA) | payer MEDICARE, OTHER, SELFPAY | PROVIDERS: PCP Internal Medicine; Visit Provider Psychiatry & Neurology Psychiatry | DX: F33.9 Major depressive disorder, recurrent, unspecified (principal); F41.1 Generalized anxiety disorder; K50.90 Crohn's disease, unspecified, without complications; E04.1 Nontoxic single thyroid nodule; Z79.899 Other long term (current) drug therapy | CPT/HCPCS: 99212 ==

== ENCOUNTER → 2024-06-30 15:00 | Outpatient (BNV) | payer MEDICARE, OTHER, SELFPAY | PROVIDERS: Visit Provider Psychiatry & Neurology Psychiatry | DX: F33.2 Major depressive disorder, recurrent severe without psychotic features (principal); F41.1 Generalized anxiety disorder | CPT/HCPCS: 90867; 90868 ==

== ENCOUNTER 2024-07-08 14:46 | Outpatient (AMB) | payer MEDICARE, OTHER, SELFPAY ==
--- NOTE | 2024-07-08 15:32 | MHC.OFFVISPS ---
Intake Intake Visit Reasons: depression Allergies azathioprine [Imuran] Allergy (Unknown, Verified 06/03/20 00:00) Pancreatitis metronidazole [Flagyl] Allergy (Unknown, Verified 06/03/20 00:00) Medication List - Last Reconciled 07/08/24 by Alan Martni MD alprazolam 1/2-1 orally 3 times a day PRN; atenolol 25 mg PO DAILY cyanocobalamin (vitamin B-12) 1,000 mcg subcut doxepin 6 mg PO BEDTIME PRN estradiol (Yuvafem) 0 mcg vaginal DAILY folic acid 1 mg PO DAILY mesalamine ER (Pentasa) 1,000 mg PO TID olanzapine (Zyprexa) 2.5 mg PO DAILY 30 days rivaroxaban (Xarelto) 20 mg PO DAILY Trintellix (vortioxetine) 20 mg PO DAILY NS HPI- Psychiatric Chief Complaint: depression Intake Note: Patient seen with her in the appointment HPI Narrative: Patient has been increasingly depressed and anxious difficulty with insomnia. She has been totally off olanzapine has been taking Trintellix 20 mg alprazolam has been on doxepin 6 mg which has been somewhat helpful for sleep continues to work but has been ruminating with significant weight loss increasingly depressed Patient has also had recent episode of pulmonary embolus and is on Xarelto. She has not had any recurrence not sure breath does not seem overly concerned regarding this and had relapsed prior to this event Past Psychiatric History: The patient has a history of chronic anxiety panic disorder and depression which developed after surgery for Crohn's disease a partial colon resection many years ago. Was stable for many years then developed a treatment resistant agitated depression that eventually responded to a combination of Trintellix 20 mg olanzapine alprazolam and TMS otherwise had failed multiple other antidepressant trial Mental Status Exam Mental Status Exam Patient Appearance: Well Grooomed Patient Orientation: Person, Place, Time and Situation Level of Consciousness: Awake and Appropriate Patient Behavior: Appropriate and Good Eye Contact Mood Description: Depressed and Blunted Affect Description: Constricted and Blunted Patient Cognition Impaired: No Ability to Follow Directions: Good Speech Pattern: Clear Memory Description: Intact Hallucinations: None Delusions: Not Present Thought Process: Intact and Goal Oriented Thought Content: positive for Goal Oriented, positive for Preoccupation, negative for Suicidal Ideation or negative for Homicidal Ideation Depressive Symptoms: Increased Anxiety, Increased Irritability, Difficulty Sleeping, Loss of Int. in Activity, Isolating-Friends/Family, Increased Fatigue, Loss of Energy and Difficulty Concentrating Judgement and Insight: Morbid preoccupation difficulty managing her time and enjoying things Assessment and Plan Assessment & Plan (1) Depression, major, severe recurrence: Status: Acute Code(s): F33.2 - Major depressive disorder, recurrent severe without psychotic features (2) Generalized anxiety disorder: Status: Acute Code(s): F41.1 - Generalized anxiety disorder Medications: New varenicline (Chantix Starting Month Box) PO PER PKG DIR 53 ea 0RF Orders: Orders ECG 12 lead EKG 07/09/24 F41.1 - Generalized anxiety disorder, I26.99 - Other pulmonary embolism without acute cor pulmonale Counseling and coordination of Care Details-Self Mgmt counseling: Discussion regarding anxiety management and recent stressors Diagnosis and Prognosis Counseling: Problematic behaviors secondary to diagnosis and Adequacy of current interventions Details: I spent [40] minutes reviewing the record, seeing the patient and documenting in the medical record. Counseling provided to the patient/caregiver as outlined below. Addressed patient/caregiver concerns regarding current medication regime including effective adherence. Addressed patient/caregiver concerns regarding diagnosis and prognosis including accuracy of diagnosis, prognosis over time, impact of diagnosis. Addressed patient/caregiver concerns regarding impact of recent stressors. [facility] Medical History (Updated 07/08/24 @ 15:44 by Alan Martin MD) Thyroid nodule Crohn disease Panic disorder [episodic paroxysmal anxiety] Generalized anxiety disorder Social History: PATIENT LIVES WITH HER HAS 2 CHILDREN 1 IN [place]. 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
== END 2024-07-08 17:52 | disposition home or self-care (01) ==
LOC: HO.HOP 14:46
PROVIDERS: PCP Internal Medicine; Visit Provider Psychiatry & Neurology Psychiatry
DX: F33.2 Major depressive disorder, recurrent severe without psychotic features (principal); F41.1 Generalized anxiety disorder
CPT/HCPCS: 90833; 99213

== ENCOUNTER → 2024-07-08 14:46 | Outpatient (BNVA) | payer MEDICARE, OTHER, SELFPAY | LOC: CF 15:59 | PROVIDERS: PCP Internal Medicine; Visit Provider Psychiatry & Neurology Psychiatry | DX: F33.2 Major depressive disorder, recurrent severe without psychotic features (principal); F41.1 Generalized anxiety disorder; I26.99 Other pulmonary embolism without acute cor pulmonale | CPT/HCPCS: 99212 ==

== ENCOUNTER → 2024-07-09 11:52 | Outpatient (REF) | payer MEDICARE, OTHER, SELFPAY ==
--- NOTE | 2024-07-09 12:05 | ECG_ITS ---
Test Reason : GEN ANX D/O Blood Pressure : / mmHG Vent. Rate : 066 BPM Atrial Rate : 066 BPM P-R Int : 130 ms QRS Dur : 128 ms QT Int : 426 ms P-R-T Axes : 057 -10 037 degrees QTc Int : 446 ms Normal sinus rhythm Right bundle branch block Abnormal ECG When compared with ECG of 28-MAY-2020 15:28, Vent. rate has decreased BY 55 BPM Borderline criteria for Inferior infarct are no longer Present Referred By: Alan Martin Electronically Signed By:LINDA MACHADO
== END ==
LOC: HO.CARD 11:52
PROVIDERS: PCP Internal Medicine; Visit Provider Psychiatry & Neurology Psychiatry
DX: F41.1 Generalized anxiety disorder (principal); I26.99 Other pulmonary embolism without acute cor pulmonale
CPT/HCPCS: 93005

== ENCOUNTER 2024-07-21 09:47 | Outpatient (AMB) | payer MEDICARE, OTHER, SELFPAY ==
--- NOTE | 2024-07-21 10:24 | A.OFFPSYCH_ITS ---
Intake Intake Visit Reasons: depression Allergies azathioprine [Imuran] Allergy (Unknown, Verified 06/03/20 00:00) Pancreatitis metronidazole [Flagyl] Allergy (Unknown, Verified 06/03/20 00:00) HPI- Psychiatric Chief Complaint: depression HPI Narrative: Patient remains quite depressed hopeless helpless despondent anxious and ruminating. Very difficult time eating and maintaining hydration has felt overmedicated with combination of doxepin 6 mg olanzapine 2.5 mg and alprazolam. Has felt more anxious panicky increasingly depressed has struggled to go to work on a regular basis can not tolerate moments alone and downtime. Remains on Trintellix L methyl folate olanzapine no active SI Past Psychiatric History: The patient has a history of chronic anxiety panic disorder and depression which developed after surgery for Crohn's disease a partial colon resection many years ago. Was stable for many years then developed a treatment resistant agitated depression that eventually responded to a combination of Trintellix 20 mg olanzapine alprazolam and TMS otherwise had failed multiple other antidepressant trial Mental Status Exam Mental Status Exam Narrative: Sad looking and anxious ruminating hopeless helpless Patient Appearance: Well Grooomed Patient Orientation: Person, Place, Time and Situation Level of Consciousness: Awake and Appropriate Patient Behavior: Appropriate and Good Eye Contact Mood Description: Depressed and Blunted Affect Description: Constricted and Blunted Patient Cognition Impaired: No Ability to Follow Directions: Good Speech Pattern: Clear Memory Description: Intact Hallucinations: None Delusions: Not Present Thought Process: Intact and Goal Oriented Thought Content: positive for Goal Oriented, positive for Preoccupation, negative for Suicidal Ideation or negative for Homicidal Ideation Depressive Symptoms: Increased Anxiety, Increased Irritability, Difficulty Sleeping, Loss of Int. in Activity, Isolating-Friends/Family, Increased Fatigue, Loss of Energy and Difficulty Concentrating Judgement and Insight: Morbid preoccupation difficulty managing her time and enjoying things Assessment and Plan Assessment & Plan (1) Depression, major, severe recurrence: Status: Acute Code(s): F33.2 - Major depressive disorder, recurrent severe without psychotic features (2) Pulmonary embolism: Status: Acute Code(s): I26.99 - Other pulmonary embolism without acute cor pulmonale (3) Panic disorder [episodic paroxysmal anxiety]: Status: Acute Code(s): F41.0 - Panic disorder [episodic paroxysmal anxiety] (4) Generalized anxiety disorder: Status: Acute Code(s): F41.1 - Generalized anxiety disorder Plan Patient feeling overmedicated on a combination of olanzapine 2.5 doxepin 6 mg and alprazolam. We discussed holding off on the doxepin for now olanzapine 2.5 mg targeting depression and anxiety symptoms and appetite alprazolam 0.25 mg at bedtime maintain hydration patient meets criteria to restart TMS trial which was effective previously. Patient meets criteria for TMS has multiple medical difficulties complicated medication management. Has failed multiple trials medication has been in ongoing outpatient psychotherapy treatment geared toward treatment depression and has had an excellent response to TMS previously. Has had serotonin syndrome in the past would benefit from [facility] retreatment which did help stabilize the patient for over 2 years to her previous level of functioning There are no medical contraindications to TMS no pacemaker no cochlear implant no metallic objects in the head or neck or brain no history of seizures Medications: Discontinued doxepin Discontinued Reason: Doctor's Order 6 mg PO BEDTIME PRN 30 tabs 2RF sleep Counseling and coordination of Care Pt. Self Management counseling: Behavior activation and Cognitive restructuring Details-Self Mgmt counseling: Encouraged daily walk smoking cessation Medication management counseling: Effectiveness and Side effects Diagnosis and Prognosis Counseling: Impact of diagnosis on life functions and Adequacy of current interventions Details-Diagnosis/Prognosis counseling: Risks benefits alternatives of different treatment options reviewed including TMS Details: I spent [40] minutes reviewing the record, seeing the patient and documenting in the medical record. Counseling provided to the patient/caregiver as outlined below. Addressed patient/caregiver concerns regarding current medication regime including effective adherence. Addressed patient/caregiver concerns regarding diagnosis and prognosis including accuracy of diagnosis, prognosis over time, impact of diagnosis. Addressed patient/caregiver concerns regarding impact of recent stressors. [facility] Medical History (Updated 07/08/24 @ 15:44 by Alan Martin MD) Thyroid nodule Crohn disease Panic disorder [episodic paroxysmal anxiety] Generalized anxiety disorder Social History: PATIENT LIVES WITH HER HAS 2 CHILDREN 1 IN [place]. HAS A SISTER THAT SHE PARTIALLY SUPPORTS IN [place]. 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
== END 2024-07-21 13:04 | disposition home or self-care (01) ==
LOC: HO.HOP 09:47
PROVIDERS: PCP Internal Medicine; Visit Provider Psychiatry & Neurology Psychiatry
DX: F33.2 Major depressive disorder, recurrent severe without psychotic features (principal); I26.99 Other pulmonary embolism without acute cor pulmonale; F41.0 Panic disorder [episodic paroxysmal anxiety]; F41.1 Generalized anxiety disorder
CPT/HCPCS: 90833; 99213

== ENCOUNTER → 2024-07-21 09:47 | Outpatient (BNVA) | payer MEDICARE, OTHER, SELFPAY | PROVIDERS: PCP Internal Medicine; Visit Provider Psychiatry & Neurology Psychiatry | DX: F33.2 Major depressive disorder, recurrent severe without psychotic features (principal); F41.0 Panic disorder [episodic paroxysmal anxiety]; F41.1 Generalized anxiety disorder; I26.99 Other pulmonary embolism without acute cor pulmonale; Z71.89 Other specified counseling | CPT/HCPCS: 99212 ==

== ENCOUNTER → 2024-09-03 09:30 | Outpatient (BNV) | payer MEDICARE, OTHER, SELFPAY | PROVIDERS: Visit Provider Psychiatry & Neurology Psychiatry | DX: F33.2 Major depressive disorder, recurrent severe without psychotic features (principal) | CPT/HCPCS: 90867; 90868 ==

== ENCOUNTER 2024-09-19 09:30 | Outpatient (RCR) | payer MEDICARE, OTHER, SELFPAY ==
--- NOTE | 2024-07-24 22:39 | P.PNPS_ITS ---
TMS Daily Progress Note Daily TMS Progress Note Date of Service: 07/24/24 Week #: 1 Treatment #(12-04): 1 PHQ-9 Pre-Treatment (12-01): 16 PHQ-9 Most Recent (12-01): 16 Reviewed: TMS Mapping/Re-mapping completed Verification: I have reviewed the TMS Fiberglass Machine Operator Note and agree with the contents. The patient remains a candidate to continue TMS treatment per protocol. Assessment and Plan (1) Depression, major, severe recurrence: Status: Acute Plan initial tx completed well tolerated
--- NOTE | 2024-07-30 17:34 | HO.TMSDAILY2 ---
TMS Daily Progress Note Daily TMS Progress Note Date of Service: 07/25/24 Week #: 1 Treatment #(12-04): 2 PHQ-9 Pre-Treatment (12-01): 16 PHQ-9 Most Recent (12-01): 16 Reviewed: TMS Tech Note Reviewed Verification: I have reviewed the TMS Other Sales Support Worker Note and agree with the contents. The patient remains a candidate to continue TMS treatment per protocol. Assessment and Plan (1) Depression, major, severe recurrence: Status: Acute Plan Patient tolerating treatment MT gradually increased
--- NOTE | 2024-07-30 17:35 | HO.TMSDAILY2 ---
TMS Daily Progress Note Daily TMS Progress Note Date of Service: 07/28/24 Week #: 1 Treatment #(12-04): 3 PHQ-9 Pre-Treatment (12-01): 16 PHQ-9 Most Recent (12-01): 16 Reviewed: TMS Tech Note Reviewed Verification: I have reviewed the TMS Component Design Engineer Note and agree with the contents. The patient remains a candidate to continue TMS treatment per protocol. Assessment and Plan (1) Depression, major, severe recurrence: Status: Acute Plan Patient tolerating treatment MT gradually increased patient remains significantly depressed PHQ-9 elevated
--- NOTE | 2024-07-30 17:35 | HO.TMSDAILY2 ---
TMS Daily Progress Note Daily TMS Progress Note Date of Service: 07/29/24 Week #: 1 Treatment #(12-04): 4 PHQ-9 Pre-Treatment (12-01): 16 PHQ-9 Most Recent (12-01): 18 Reviewed: TMS Tech Note Reviewed Verification: I have reviewed the TMS Mechanical Technical Service Specialist Note and agree with the contents. The patient remains a candidate to continue TMS treatment per protocol. Assessment and Plan (1) Depression, major, severe recurrence: Status: Acute Plan Patient tolerating treatment MT gradually increased patient remains significantly depressed PHQ-9 elevated
--- NOTE | 2024-07-30 17:52 | HO.TMSDAILY2 ---
TMS Daily Progress Note Daily TMS Progress Note Date of Service: 07/30/24 Week #: 1 Treatment #(12-04): 5 PHQ-9 Pre-Treatment (12-01): 16 PHQ-9 Most Recent (12-01): 18 Reviewed: TMS Tech Note Reviewed Verification: I have reviewed the TMS Services Coordinator Note and agree with the contents. The patient remains a candidate to continue TMS treatment per protocol. Assessment and Plan (1) Depression, major, severe recurrence: Status: Acute Plan Patient tolerating treatment MT gradually increased 105 patient remains significantly depressed PHQ-9 elevated she is engaged during treatment
--- NOTE | 2024-08-05 22:25 | HO.TMSDAILY2 ---
TMS Daily Progress Note Daily TMS Progress Note Date of Service: 06/30/24 Week #: 2 Treatment #(12-04): 6 PHQ-9 Pre-Treatment (12-01): 16 PHQ-9 Most Recent (12-01): 18 Reviewed: TMS Tech Note Reviewed Verification: I have reviewed the TMS Datapower Developer Note and agree with the contents. The patient remains a candidate to continue TMS treatment per protocol. Assessment and Plan (1) Major depressive disorder, recurrent: Status: Acute Plan continue plan of care some improvement noted tolerating tx
--- NOTE | 2024-08-05 22:36 | P.PNPS_ITS ---
TMS Daily Progress Note Daily TMS Progress Note Date of Service: 08/01/24 Week #: 2 Treatment #(12-04): 7 PHQ-9 Pre-Treatment (12-01): 16 PHQ-9 Most Recent (12-01): 18 Reviewed: TMS Tech Note Reviewed Verification: I have reviewed the TMS Boots And Shoes Supervisor Note and agree with the contents. The patient remains a candidate to continue TMS treatment per protocol. Assessment and Plan (1) Major depressive disorder, recurrent: Status: Acute Plan tolerating tx mt inc
--- NOTE | 2024-08-05 22:43 | HO.TMSDAILY2 ---
TMS Daily Progress Note Daily TMS Progress Note Date of Service: 08/04/24 Week #: 2 Treatment #(12-04): 8 PHQ-9 Pre-Treatment (12-01): 16 PHQ-9 Most Recent (12-01): 12 Reviewed: TMS Tech Note Reviewed Verification: I have reviewed the TMS Wrecking Mechanic Note and agree with the contents. The patient remains a candidate to continue TMS treatment per protocol. Assessment and Plan (1) Major depressive disorder, recurrent: Status: Acute Plan cont plan of care tolerating tx
--- NOTE | 2024-08-05 22:48 | HO.TMSDAILY2 ---
TMS Daily Progress Note Daily TMS Progress Note Date of Service: 08/05/24 Week #: 2 Treatment #(12-04): 9 PHQ-9 Pre-Treatment (12-01): 16 PHQ-9 Most Recent (12-01): 12 Reviewed: TMS Tech Note Reviewed Verification: I have reviewed the TMS Ground Crew Lines Person Note and agree with the contents. The patient remains a candidate to continue TMS treatment per protocol. Assessment and Plan (1) Major depressive disorder, recurrent: Status: Acute Plan cont plan of care tolerating tx
--- NOTE | 2024-08-24 21:55 | P.PNPS_ITS ---
TMS Daily Progress Note Daily TMS Progress Note Date of Service: 08/24/24 Week #: 2 Treatment #(12-04): 10 PHQ-9 Pre-Treatment (12-01): 16 PHQ-9 Most Recent (12-01): 12 Reviewed: TMS Tech Note Reviewed Verification: I have reviewed the TMS Industrial Electrical Engineer Note and agree with the contents. The patient remains a candidate to continue TMS treatment per protocol. Assessment and Plan (1) Major depressive disorder, recurrent: Status: Acute Plan cont plan of care tolerating tx
--- NOTE | 2024-08-24 21:57 | HO.TMSDAILY2 ---
TMS Daily Progress Note Daily TMS Progress Note Date of Service: 08/07/24 Week #: 3 Treatment #(12-04): 11 PHQ-9 Pre-Treatment (12-01): 16 PHQ-9 Most Recent (12-01): 12 Reviewed: TMS Tech Note Reviewed Verification: I have reviewed the TMS Outreach Coordinator Note and agree with the contents. The patient remains a candidate to continue TMS treatment per protocol. Assessment and Plan (1) Major depressive disorder, recurrent: Status: Acute Plan cont plan of care tolerating tx
--- NOTE | 2024-08-24 22:02 | HO.TMSDAILY2 ---
TMS Daily Progress Note Daily TMS Progress Note Date of Service: 08/08/24 Week #: 3 Treatment #(12-04): 12 PHQ-9 Pre-Treatment (12-01): 16 PHQ-9 Most Recent (12-01): 12 Reviewed: TMS Tech Note Reviewed Verification: I have reviewed the TMS Boxing And Pressing Supervisor Note and agree with the contents. The patient remains a candidate to continue TMS treatment per protocol. Assessment and Plan (1) Major depressive disorder, recurrent: Status: Acute Plan cont plan of care tolerating tx
--- NOTE | 2024-08-24 22:05 | HO.TMSDAILY2 ---
TMS Daily Progress Note Daily TMS Progress Note Date of Service: 08/11/24 Week #: 3 Treatment #(12-04): 13 PHQ-9 Pre-Treatment (12-01): 16 PHQ-9 Most Recent (12-01): 12 Reviewed: TMS Tech Note Reviewed Verification: I have reviewed the TMS Hearing Healthcare Practitioner Note and agree with the contents. The patient remains a candidate to continue TMS treatment per protocol. Assessment and Plan (1) Major depressive disorder, recurrent: Status: Acute (2) Generalized anxiety disorder: Status: Acute Plan Patient showing clear improvement continue plan of care
--- NOTE | 2024-08-24 22:08 | P.PNPS_ITS ---
TMS Daily Progress Note Daily TMS Progress Note Date of Service: 08/12/24 Week #: 3 Treatment #(12-04): 14 PHQ-9 Pre-Treatment (12-01): 16 PHQ-9 Most Recent (12-01): 7 Reviewed: TMS Tech Note Reviewed Verification: I have reviewed the TMS Closet Organizer Note and agree with the contents. The patient remains a candidate to continue TMS treatment per protocol. Assessment and Plan (1) Major depressive disorder, recurrent: Status: Acute (2) Generalized anxiety disorder: Status: Acute Plan Patient showing clear improvement continue plan of care
--- NOTE | 2024-08-24 22:11 | P.PNPS_ITS ---
TMS Daily Progress Note Daily TMS Progress Note Date of Service: 08/13/24 Week #: 3 Treatment #(12-04): 15 PHQ-9 Pre-Treatment (12-01): 16 PHQ-9 Most Recent (12-01): 7 Reviewed: TMS Tech Note Reviewed Verification: I have reviewed the TMS Refining Machine Operator Note and agree with the contents. The patient remains a candidate to continue TMS treatment per protocol. Assessment and Plan (1) Major depressive disorder, recurrent: Status: Acute (2) Generalized anxiety disorder: Status: Acute Plan Patient showing clear improvement continue plan of care
--- NOTE | 2024-08-24 22:16 | HO.TMSDAILY2 ---
TMS Daily Progress Note Daily TMS Progress Note Date of Service: 08/14/24 Week #: 4 Treatment #(12-04): 16 PHQ-9 Pre-Treatment (12-01): 16 PHQ-9 Most Recent (12-01): 7 Reviewed: TMS Tech Note Reviewed Verification: I have reviewed the TMS Spinning Bath Patroller Note and agree with the contents. The patient remains a candidate to continue TMS treatment per protocol. Assessment and Plan (1) Major depressive disorder, recurrent: Status: Acute (2) Generalized anxiety disorder: Status: Acute Plan Patient showing clear improvement continue plan of care
--- NOTE | 2024-08-24 22:18 | HO.TMSDAILY2 ---
TMS Daily Progress Note Daily TMS Progress Note Date of Service: 08/15/24 Week #: 4 Treatment #(12-04): 17 PHQ-9 Pre-Treatment (12-01): 16 PHQ-9 Most Recent (12-01): 7 Reviewed: TMS Tech Note Reviewed Verification: I have reviewed the TMS Crane Assembler Note and agree with the contents. The patient remains a candidate to continue TMS treatment per protocol. Assessment and Plan (1) Major depressive disorder, recurrent: Status: Acute (2) Generalized anxiety disorder: Status: Acute Plan Patient showing clear improvement continue plan of care
--- NOTE | 2024-08-24 22:21 | HO.TMSDAILY2 ---
TMS Daily Progress Note Daily TMS Progress Note Date of Service: 08/19/24 Week #: 4 Treatment #(12-04): 18 PHQ-9 Pre-Treatment (12-01): 16 PHQ-9 Most Recent (12-01): 7 Reviewed: TMS Tech Note Reviewed Verification: I have reviewed the TMS Dark Room Attendant Note and agree with the contents. The patient remains a candidate to continue TMS treatment per protocol. Assessment and Plan (1) Major depressive disorder, recurrent: Status: Acute (2) Generalized anxiety disorder: Status: Acute Plan Patient showing clear improvement continue plan of care
--- NOTE | 2024-08-24 22:25 | P.PNPS_ITS ---
TMS Daily Progress Note Daily TMS Progress Note Date of Service: 08/20/24 Week #: 4 Treatment #(12-04): 19 PHQ-9 Pre-Treatment (12-01): 16 PHQ-9 Most Recent (12-01): 7 Reviewed: TMS Tech Note Reviewed Verification: I have reviewed the TMS Water Resources Program Director Note and agree with the contents. The patient remains a candidate to continue TMS treatment per protocol. Assessment and Plan (1) Major depressive disorder, recurrent: Status: Acute (2) Generalized anxiety disorder: Status: Acute Plan Patient showing clear improvement continue plan of care
--- NOTE | 2024-08-24 22:27 | HO.TMSDAILY2 ---
TMS Daily Progress Note Daily TMS Progress Note Date of Service: 08/20/24 Week #: 4 Treatment #(12-04): 20 PHQ-9 Pre-Treatment (12-01): 16 PHQ-9 Most Recent (12-01): 7 Reviewed: TMS Tech Note Reviewed Verification: I have reviewed the TMS Joint Terminal Attack Controller Note and agree with the contents. The patient remains a candidate to continue TMS treatment per protocol. Assessment and Plan (1) Major depressive disorder, recurrent: Status: Acute (2) Generalized anxiety disorder: Status: Acute Plan Patient showing clear improvement continue plan of care
--- NOTE | 2024-08-24 22:32 | P.PNPS_ITS ---
TMS Daily Progress Note Daily TMS Progress Note Date of Service: 08/22/24 Week #: 5 Treatment #(12-04): 21 PHQ-9 Pre-Treatment (12-01): 16 PHQ-9 Most Recent (12-01): 7 Reviewed: TMS Tech Note Reviewed Verification: I have reviewed the TMS In Flight Refueling Operator Note and agree with the contents. The patient remains a candidate to continue TMS treatment per protocol.
--- NOTE | 2024-08-27 08:40 | HO.TMSDAILY2 ---
TMS Daily Progress Note Daily TMS Progress Note Date of Service: 08/25/24 Week #: 5 Treatment #(12-04): 22 PHQ-9 Pre-Treatment (12-01): 16 PHQ-9 Most Recent (12-01): 8 Reviewed: TMS Tech Note Reviewed Verification: I have reviewed the TMS Tire And Lube Technician Note and agree with the contents. The patient remains a candidate to continue TMS treatment per protocol. Assessment and Plan (1) Major depressive disorder, recurrent: Status: Acute (2) Generalized anxiety disorder: Status: Acute Plan Patient showing clear improvement continue plan of care
--- NOTE | 2024-08-27 08:41 | HO.TMSDAILY2 ---
TMS Daily Progress Note Daily TMS Progress Note Date of Service: 08/26/24 Week #: 5 Treatment #(12-04): 23 PHQ-9 Pre-Treatment (12-01): 16 PHQ-9 Most Recent (12-01): 8 Reviewed: TMS Tech Note Reviewed Verification: I have reviewed the TMS Digital Content Specialist Note and agree with the contents. The patient remains a candidate to continue TMS treatment per protocol. Assessment and Plan (1) Major depressive disorder, recurrent: Status: Acute (2) Generalized anxiety disorder: Status: Acute Plan Patient showing clear improvement continue plan of care
--- NOTE | 2024-08-27 18:30 | HO.TMSDAILY2 ---
TMS Daily Progress Note Daily TMS Progress Note Date of Service: 08/27/24 Week #: 5 Treatment #(12-04): 24 PHQ-9 Pre-Treatment (12-01): 16 PHQ-9 Most Recent (12-01): 8 Reviewed: TMS Tech Note Reviewed Verification: I have reviewed the TMS Media Law Faculty Member Note and agree with the contents. The patient remains a candidate to continue TMS treatment per protocol. Assessment and Plan (1) Major depressive disorder, recurrent: Status: Acute (2) Generalized anxiety disorder: Status: Acute Plan Patient showing clear improvement continue plan of care
--- NOTE | 2024-09-03 11:38 | HO.TMSDAILY2 ---
TMS Daily Progress Note Daily TMS Progress Note Date of Service: 09/03/24 Week #: 6 Treatment #(-): 29 PHQ-9 Pre-Treatment (-): 15 PHQ-9 Most Recent (12-01): 6 BRADEN-7 Pre-Treatment (0-): 14 BRADEN-7 Most Recent (0-): 7 Reviewed: TMS Tech Note Reviewed Verification: I have reviewed the TMS Level Glass Forming Machine Operator Note and agree with the contents. The patient remains a candidate to continue TMS treatment per protocol.
--- NOTE | 2024-09-14 21:48 | P.PNPS_ITS ---
TMS Daily Progress Note Daily TMS Progress Note Date of Service: 09/04/24 Week #: 6 Treatment #(-): 30 PHQ-9 Pre-Treatment (-): 15 PHQ-9 Most Recent (12-01): 6 BRADEN-7 Pre-Treatment (0-21): 14 BRADEN-7 Most Recent (0-21): 7 Reviewed: TMS Tech Note Reviewed Verification: I have reviewed the TMS Masonry Contractor Administrator Note and agree with the contents. The patient remains a candidate to continue TMS treatment per protocol. Assessment and Plan (1) Depression, major, severe recurrence: Status: Acute Plan Patient has done well with TMS continue treatment
--- NOTE | 2024-09-14 21:51 | P.PNPS_ITS ---
TMS Daily Progress Note Daily TMS Progress Note Date of Service: 09/08/24 Week #: 7 Treatment #(-): 31 PHQ-9 Pre-Treatment (-): 15 PHQ-9 Most Recent (12-01): 6 BRADEN-7 Pre-Treatment (0-21): 14 BRADEN-7 Most Recent (0-21): 7 Reviewed: TMS Tech Note Reviewed Verification: I have reviewed the TMS [employer] Sales Note and agree with the contents. The patient remains a candidate to continue TMS treatment per protocol. Assessment and Plan (1) Depression, major, severe recurrence: Status: Acute Plan Patient has done well with TMS continue treatment
--- NOTE | 2024-09-14 21:53 | P.PNPS_ITS ---
TMS Daily Progress Note Daily TMS Progress Note Date of Service: 09/10/24 Week #: 7 Treatment #(-30): 32 PHQ-9 Pre-Treatment (-): 15 PHQ-9 Most Recent (12-01): 4 BRADEN-7 Pre-Treatment (0-21): 14 BRADEN-7 Most Recent (0-21): 7 Reviewed: TMS Tech Note Reviewed Verification: I have reviewed the TMS Ecologist Technician Note and agree with the contents. The patient remains a candidate to continue TMS treatment per protocol. Assessment and Plan (1) Depression, major, severe recurrence: Status: Acute Plan Patient has done well with TMS continue treatment
--- NOTE | 2024-09-14 21:55 | P.PNPS_ITS ---
TMS Daily Progress Note Daily TMS Progress Note Date of Service: 09/12/24 Week #: 7 Treatment #(-30): 33 PHQ-9 Pre-Treatment (-): 15 PHQ-9 Most Recent (12-01): 4 BRADEN-7 Pre-Treatment (0-21): 14 BRADEN-7 Most Recent (0-21): 7 Reviewed: TMS Tech Note Reviewed Verification: I have reviewed the TMS Professional Organizer Note and agree with the contents. The patient remains a candidate to continue TMS treatment per protocol. Assessment and Plan (1) Depression, major, severe recurrence: Status: Acute Plan Continue plan of care patient has had excellent response
--- NOTE | 2024-09-15 14:35 | P.PNPS_ITS ---
TMS Daily Progress Note Daily TMS Progress Note Date of Service: 09/16/24 Week #: 7 Treatment #(-): 34 PHQ-9 Pre-Treatment (-): 15 PHQ-9 Most Recent (12-01): 4 BRADEN-7 Pre-Treatment (0-21): 14 BRADEN-7 Most Recent (0-21): 7 Reviewed: TMS Tech Note Reviewed Verification: I have reviewed the TMS Dehydrating Press Operator Note and agree with the contents. The patient remains a candidate to continue TMS treatment per protocol.
--- NOTE | 2024-09-18 10:05 | P.PNPS_ITS ---
TMS Daily Progress Note Daily TMS Progress Note Date of Service: 09/17/24 Week #: 8 Treatment #(12-04): 35 PHQ-9 Pre-Treatment (-): 15 PHQ-9 Most Recent (12-01): 4 BRADEN-7 Pre-Treatment (0-21): 14 BRADEN-7 Most Recent (0-21): 7 Reviewed: TMS Tech Note Reviewed Verification: I have reviewed the TMS Marketing Designer Note and agree with the contents. The patient remains a candidate to continue TMS treatment per protocol. Assessment and Plan (1) Depression, major, severe recurrence: Status: Acute Plan Continue plan of care patient has had excellent response no c/o side effects
--- NOTE | 2024-09-22 17:59 | HO.TMSDAILY2 ---
TMS Daily Progress Note Daily TMS Progress Note Date of Service: 09/19/24 Week #: 8 Treatment #(-): 36 PHQ-9 Pre-Treatment (-): 15 PHQ-9 Most Recent (12-01): 3 BRADEN-7 Pre-Treatment (0-21): 14 BRADEN-7 Most Recent (0-): 7 Reviewed: TMS Tech Note Reviewed Verification: I have reviewed the TMS Cardiovascular Surgical Tech Note and agree with the contents. The patient remains a candidate to continue TMS treatment per protocol. Assessment and Plan (1) Depression, major, severe recurrence: Status: Acute (2) Generalized anxiety disorder: Status: Acute Plan Patient markedly improved no significant side effects has successfully completed TMS treatment with a marked improvement in mood and anxiety
== END 2024-09-24 13:41 | disposition home or self-care (01) ==
LOC: HO.PTMS 09:30
PROVIDERS: Visit Provider Psychiatry & Neurology Psychiatry
DX: F33.2 Major depressive disorder, recurrent severe without psychotic features (principal); F41.1 Generalized anxiety disorder
CPT/HCPCS: 90867; 90868

== ENCOUNTER 2024-10-01 10:29 | Outpatient (AMB) | payer MEDICARE, OTHER, SELFPAY ==
--- NOTE | 2024-10-01 11:11 | MHC.OFFVISPS ---
Intake Intake Visit Reasons: Depression Allergies azathioprine [Imuran] Allergy (Unknown, Verified 06/03/20 00:00) Pancreatitis metronidazole [Flagyl] Allergy (Unknown, Verified 06/03/20 00:00) Medication List - Last Reconciled 10/01/24 by Alan Martin MD alprazolam 1/2-1 orally 3 times a day PRN; atenolol 25 mg PO DAILY cyanocobalamin (vitamin B-12) 1,000 mcg subcut folic acid 1 mg PO DAILY mesalamine ER (Pentasa) 1,000 mg PO TID olanzapine (Zyprexa) 2.5 mg PO DAILY 90 days rivaroxaban (Xarelto) 20 mg PO DAILY Trintellix (vortioxetine) 20 mg PO DAILY NS varenicline (Chantix Starting Month Box) PO PER PKG DIR HPI- Psychiatric Chief Complaint: Depression HPI Narrative: Pt seen with her has generally been doing ok . Patient has some periods of insomnia Has generally been in better mood eating better. Does best with olanzapine at bedtime low-dose aware of potential risks with elevated blood sugar tardive dyskinesia. Has been able to work regularly will be visiting her daughter and extended family in [place] in the next few weeks. PHQ-9 4 no new medical concerns. Past Psychiatric History: The patient has a history of chronic anxiety panic disorder and depression which developed after surgery for Crohn's disease a partial colon resection many years ago. Was stable for many years then developed a treatment resistant agitated depression that eventually responded to a combination of Trintellix 20 mg olanzapine alprazolam and TMS otherwise had failed multiple other antidepressant trial Mental Status Exam Mental Status Exam Narrative: BMI result Body Mass Index 20.0 Labs 10/13/24 12:09 10/13/24 18:20 Labs: Laboratory Results - last 48 hr Meds/Allergies Meds Home Medications l Allergies Patient Appearance: Well Grooomed Patient Orientation: Person, Place, Time and Situation Level of Consciousness: Awake and Appropriate Patient Behavior: Appropriate and Good Eye Contact Mood Description: Appropriate and Relaxed Affect Description: Blunted Patient Cognition Impaired: No Ability to Follow Directions: Good Speech Pattern: Clear Memory Description: Intact Hallucinations: None Delusions: Not Present Thought Process: Intact and Goal Oriented Thought Content: positive for Goal Oriented, positive for Preoccupation, negative for Suicidal Ideation or negative for Homicidal Ideation Judgement and Insight: Has generally been doing much better does have some degree of chronic anxiety Assessment and Plan Assessment & Plan (1) Generalized anxiety disorder: Status: Acute Code(s): F41.1 - Generalized anxiety disorder (2) Major depressive disorder, recurrent, in remission: Status: Acute Code(s): F33.40 - Major depressive disorder, recurrent, in remission, unspecified Plan Patient generally stable continues on low-dose alprazolam which she has done well with. Continue low-dose olanzapine has done best when taking this have tried discontinuing on multiple occasions Medications: Changed From alprazolam 1/2-1 orally 3 times a day PRN; 70 tabs 3RF anxiety To alprazolam 1/2-1 orally 3 times a day PRN; 70 tabs 3RF anxiety From olanzapine 2.5 mg PO DAILY 30 days 30 tabs 2RF To olanzapine (Zyprexa) 2.5 mg PO DAILY 90 tabs 1RF 90 days Refilled Trintellix (vortioxetine) 20 mg PO DAILY 90 tabs 1RF NS atenolol 25 mg PO DAILY 90 tabs 1RF Counseling and coordination of Care Details-Self Mgmt counseling: Managing chronic anxiety maintaining functioning Medication management counseling: Side effects Details-Med Mgmt counseling: Issues related to chronic benzodiazepine use low-dose antipsychotic side effects including tardive dyskinesia no evidence of abnormal movement on exam or by patient and recommended the weighted sugar diet check blood sugar Diagnosis and Prognosis Counseling: Adequacy of current interventions Details: I spent [40] minutes reviewing the record, seeing the patient and documenting in the medical record. Counseling provided to the patient/caregiver as outlined below. Addressed patient/caregiver concerns regarding current medication regime including effective adherence. Addressed patient/caregiver concerns regarding diagnosis and prognosis including accuracy of diagnosis, prognosis over time, impact of diagnosis. Addressed patient/caregiver concerns regarding impact of recent stressors. [facility] Medical History (Updated 07/08/24 @ 15:44 by Alan Martin MD) Thyroid nodule Crohn disease Panic disorder [episodic paroxysmal anxiety] Generalized anxiety disorder Social History: PATIENT LIVES WITH HER HAS 2 CHILDREN 1 IN [place]. HAS A SISTER THAT SHE PARTIALLY SUPPORTS IN [place]. 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
== END 2024-10-01 11:11 | disposition home or self-care (01) ==
LOC: HO.HOP 10:29
PROVIDERS: Visit Provider Psychiatry & Neurology Psychiatry
DX: F41.1 Generalized anxiety disorder (principal); F33.40 Major depressive disorder, recurrent, in remission, unspecified
CPT/HCPCS: 90833; 99213

== ENCOUNTER → 2024-10-01 10:29 | Outpatient (BNVA) | payer MEDICARE, OTHER, SELFPAY | PROVIDERS: Visit Provider Psychiatry & Neurology Psychiatry | DX: F33.40 Major depressive disorder, recurrent, in remission, unspecified (principal); F41.1 Generalized anxiety disorder; Z71.89 Other specified counseling | CPT/HCPCS: 99212 ==

== ENCOUNTER 2024-12-08 10:35 | Outpatient (AMB) | payer MEDICARE, OTHER, SELFPAY ==
--- NOTE | 2024-12-08 11:11 | MHC.OFFVISPS ---
Intake Intake Visit Reasons: Depression Allergies azathioprine [Imuran] Allergy (Unknown, Verified 06/03/20 00:00) Pancreatitis metronidazole [Flagyl] Allergy (Unknown, Verified 06/03/20 00:00) HPI- Psychiatric Chief Complaint: Depression HPI Narrative: Pt seen in f/u with . Mood has been ok some mild sx at times. Does better with eating sleeping. Olanzapine 2.5 mg bedtime seems to be very helpful.Cont on trintellix Past Psychiatric History: The patient has a history of chronic anxiety panic disorder and depression which developed after surgery for Crohn's disease a partial colon resection many years ago. Was stable for many years then developed a treatment resistant agitated depression that eventually responded to a combination of Trintellix 20 mg olanzapine alprazolam and TMS otherwise had failed multiple other antidepressant trial Mental Status Exam Mental Status Exam Narrative: Casually dressed mood euthymic to flat affect logical goal directed no callahan or delusional material BMI result Body Mass Index 20.0 Labs 10/13/24 12:09 10/13/24 18:20 Labs: Laboratory Results - last 48 hr Meds/Allergies Meds Home Medications l Allergies Patient Appearance: Well Grooomed Patient Orientation: Person, Place, Time and Situation Level of Consciousness: Awake and Appropriate Patient Behavior: Appropriate and Good Eye Contact Mood Description: Appropriate and Relaxed Affect Description: Blunted Patient Cognition Impaired: No Ability to Follow Directions: Good Speech Pattern: Clear Memory Description: Intact Hallucinations: None Delusions: Not Present Thought Process: Intact and Goal Oriented Thought Content: positive for Goal Oriented, positive for Preoccupation, negative for Suicidal Ideation or negative for Homicidal Ideation Depressive Symptoms: Increased Anxiety, Increased Irritability, Difficulty Sleeping, Loss of Int. in Activity, Isolating-Friends/Family, Increased Fatigue, Loss of Energy and Difficulty Concentrating Judgement and Insight: Has generally been doing much better does have some degree of chronic anxiety Assessment and Plan Assessment & Plan (1) Generalized anxiety disorder: Status: Acute Code(s): F41.1 - Generalized anxiety disorder (2) Panic disorder [episodic paroxysmal anxiety]: Status: Acute Code(s): F41.0 - Panic disorder [episodic paroxysmal anxiety] (3) Major depressive disorder, recurrent, in remission: Status: Acute Code(s): F33.40 - Major depressive disorder, recurrent, in remission, unspecified Plan cont tx plan mood stable ck labs Orders: Orders Comprehensive [place]. Panel Fast 12/08/24 F41.1 - Generalized anxiety disorder, F41.0 - Panic disorder [episodic paroxysmal anxiety], F33.40 - Major depressive disorder, recurrent, in remission, unspecified, I26.99 - Other pulmonary embolism without acute cor pulmonale, E04.1 - Nontoxic single thyroid nodule, K50.90 - Crohn's disease, unspecified, without complications TSH reflex Free T4 12/08/24 F41.1 - Generalized anxiety disorder, F41.0 - Panic disorder [episodic paroxysmal anxiety], F33.40 - Major depressive disorder, recurrent, in remission, unspecified, I26.99 - Other pulmonary embolism without acute cor pulmonale, E04.1 - Nontoxic single thyroid nodule, K50.90 - Crohn's disease, unspecified, without complications Complete Blood Count Auto Diff 12/08/24 F41.1 - Generalized anxiety disorder, F41.0 - Panic disorder [episodic paroxysmal anxiety], F33.40 - Major depressive disorder, recurrent, in remission, unspecified, I26.99 - Other pulmonary embolism without acute cor pulmonale, E04.1 - Nontoxic single thyroid nodule, K50.90 - Crohn's disease, unspecified, without complications Counseling and coordination of Care Pt. Self Management counseling: Behavior activation Details-Self Mgmt counseling: issues related to need to stay busyand present work envt Medication management counseling: Effectiveness, Side effects and Dosing range Diagnosis and Prognosis Counseling: Accuracy of diagnosis, Prognosis over time and Adequacy of current interventions Details: I spent [38] minutes reviewing the record, seeing the patient and documenting in the medical record. Counseling provided to the patient/caregiver as outlined below. Addressed patient/caregiver concerns regarding current medication regime including effective adherence. Addressed patient/caregiver concerns regarding diagnosis and prognosis including accuracy of diagnosis, prognosis over time, impact of diagnosis. Addressed patient/caregiver concerns regarding impact of recent stressors. [facility] Medical History (Updated 07/08/24 @ 15:44 by Alan Martin MD) Thyroid nodule Crohn disease Panic disorder [episodic paroxysmal anxiety] Generalized anxiety disorder Social History: PATIENT LIVES WITH HER HAS 2 CHILDREN 1 IN [place]. HAS A SISTER THAT SHE PARTIALLY SUPPORTS IN [place]. 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
--- OUTSIDE RECORDS SUMMARY | 2024-12-08 11:23 | XMS_ITS | Clinical Summary ---
Author Organization [facility] [address] [facility] Address [address] [place] [address] Phone Care Team Providers Care Inspector [employer] Name Role Phone Najma Sparks MD Primary Care Provider Allergies Active Allergy Reactions Criticality Noted Date Comments Metronidazole 10/06/2024 Azathioprine 10/06/2024 Medications Medication Sig Dispensed Refills Start Date End Date Status folic acid (FOLVITE) 1 mg tablet Take 1 tablet (1,000 mcg total) by mouth 1 (one) time each day. 07/29/2024 Active loperamide (IMODIUM A-D) 2 mg tablet Take 2 tablets (4 mg total) by mouth. 11/17/2022 Active ALPRAZolam (XANAX) 0.25 mg tablet Take 1 tablet (0.25 mg total) by mouth. 08/26/2020 Active Trintellix 20 mg tablet Take 1 tablet (20 mg total) by mouth 1 (one) time each day. 09/05/2024 Active Xarelto 20 mg tablet TAKE 1 TABLET BY MOUTH EVERY DAY WITH SUPPER Active OLANZapine (ZyPREXA) 2.5 mg tablet Take 1 tablet (2.5 mg total) by mouth 1 (one) time each day. 10/01/2024 Active cyanocobalamin (VITAMIN B-12) 1,000 mcg/mL injection INJECT 1 ML ONCE A MONTH 08/30/2024 Active acetaminophen (TYLENOL 8 HOUR) 650 mg 8 hr tablet Take 1 tablet (650 mg total) by mouth every 8 (eight) hours if needed for mild pain. Do not crush, chew, or split. Active atenoloL (TENORMIN) 25 mg tablet Take 1 tablet (25 mg total) by mouth 1 (one) time each day. 10/03/2024 Active folic acid (FOLVITE) 1 mg tablet Take 1 tablet (1 mg total) by mouth 1 (one) time each day. 90 each 3 10/06/2024 5 Active cyanocobalamin (VITAMIN B-12) 1,000 mcg/mL injection Inject 1 mL (1,000 mcg total) under the skin 1 (one) time per week. Inject as directed 4 mL 3 10/06/2024 5 Active syringe with needle (BD Luer-Tracie Syringe) 3 mL 25 gauge x 1 syringeIndications :Crohn's disease of ileum without complication (CMS/HCC) USE 1 SYRINGE DIRECTED ONCE A MONTH 12 each 3 10/07/2024 Active mesalamine (LIALDA) 1.2 gram EC tabletIndications: Crohn's disease of ileum without complication (CMS/HCC) Take 2 tablets (2.4 g total) by mouth 2 (two) times a day. Do not crush, chew, or split. 120 each 5 12/03/2024 6 Active mesalamine (PENTASA) 500 mg CR capsuleIndications :Crohn's disease of ileum without complication (CMS/HCC),Rectal bleeding TAKE 2 CAPSULES (1,000 MG TOTAL) BY MOUTH 3 TIMES A DAY 540 capsule 3 11/06/2024 5 Discontinued Active Problems Problem Noted Date Diagnosed Date Crohn's disease of ileum without complication Assessment & Plan (10/06/2024 9:43 AM EST): 75-year-old female with longstanding small bowel Crohn's disease presenting for follow-up. Patient is status post ileal resection many years ago which resulted in good stabilization of her Crohn's disease. She maintains her self on a 5-ASA product, and over the years has done very well with this. She does require supplementation with B12 and folate, something she follows up with excellent compliance. By history, patient with 4 days of rectal bleeding associated with pain and strain with the background use of a blood thinner . More than likely this represents bleeding from her known hemorrhoidal disease. Less likely MO concerned that she has a flare of her Crohn's disease which is been located in the small bowel. Recent colonoscopy also makes it less likely bleeding from a polyp, AVM or tumor. 1. Continue current medication profile. 2. I have refilled B12, folate and mesalamine product. 3. Will be sending patient to the lab for routine blood work. 4. Patient to continue with just loperamide dose to allow for soft easy to pass stools. 5. Discussed hemorrhoids including management and a prior history of finding on endoscopic evaluation. 6. Further adjustments based on blood laboratory studies. Orders: CBC and differential; Future Comprehensive metabolic panel; Future Folate; Future Vitamin B12; Future Sedimentation rate; Future Diabetes Supplies Rectal bleeding 10/06/2024 Assessment & Plan (10/06/2024 9:43 AM EST): As above. Currently has resolved. 1. Routine follow-up in 1 year. 2. Patient instructed to contact me sooner with issues. Encounters Date Type Department Care Team Description 12/01/2024 Telephone Gastroenterology - [address] [place] [phone] Sheri Joaquin MA 10/07/2024 Telephone Gastroenterology - [address] [address] aFith Sweeney MA Results 10/06/2024 9:00 AM EST Office Visit Gastroenterology - [address] [address] Michael Prasad MD Crohn's disease of ileum without complication (CMS/HCC) (Primary Dx); Rectal bleeding 09/30/2024 Telephone Gastroenterology - [address] [address] Sheri Joaquin MA from Last 3 Months Surgical History Surgery Date Site/Laterality Comments BLADDER SUSPENSION HEMICOLECTOMY Right With ileal resection COLONOSCOPY 09/05/2023 - 10/04/2023 Medical History Medical History Date Comments Crohn's disease of small intestine (CMS/HCC) Ovarian cyst Adrenal nodule (CMS/HCC) Anxiety Basal cell carcinoma Vitamin B 12 deficiency IBS (irritable bowel syndrome) Pulmonary embolism (CMS/HCC) Family History Medical History Relation Name Comments Breast cancer Other Colon cancer Other Relation Name Status Comments Other Social History Tobacco Use Types Packs/Day Years Used Date Smoking Tobacco: Never Smokeless Tobacco: Never Tobacco Cessation:Counseling Given: Not Answered Alcohol Use Standard Drinks/Week Comments Yes 0 (1 standard drink = 0.6 oz pur e alcohol) Sex and Gender Information Value Date Recorded Sex Assigned at Female 09/08/2024 2:55 PM EST Gender Identity Female 09/08/2024 2:55 PM EST Sexual Orientation Choose not to disclose 2023 2:55 PM EST Job Start Date Occupation Industry Not on file Not on file Not on file Obstetrics History Last Filed Vital Signs Vital Sign Reading Time Taken Comments Blood Pressure - - Pulse - - Temperature - - Respiratory Rate - - Oxygen Saturation - - Inhaled Oxygen Concentration - - Weight 59 kg (130 lb) 10/06/2024 8:38 AM EST Height 160 cm (5' 3 ) 10/06/2024 8:38 AM EST Body Mass Index 23.03 10/06/2024 8:38 AM EST Plan of Treatment Health Maintenance Due Date Last Done Comments Breast Cancer Screening 1950 Hepatitis A Vaccines (1 of 2 - Risk 2-dose series) 1971 Cholesterol Screening (Lipid Panel) 09/09/2024 Depression Screening 09/09/2024 Falls Risk Assessment 09/09/2024 Hepatitis C Screening 09/09/2024 Medicare Annual Wellness Visit 09/09/2024 Osteoporosis Screening (Bone Density Screening) 09/09/2024 Social Influencers of Health Screening 09/09/2024 DTaP,Tdap,and Td Vaccines (2 - Td or Tdap) 07/12/2032 07/12/2022 Colorectal Cancer Screening: Colonoscopy 10/02/2033 10/02/2023 Pneumococcal Vaccine: 65+ Years Completed 10/14/2020, 10/14/2019, 10/14/2019 Zoster Vaccines Completed 08/25/2021, 05/05, 07/13/2016 RSV Immunization Patients 60+ Years Old Completed 10/21/2023 COVID-19 Vaccine Completed 07/18/2024, , 07/26/2023, Additional history exists Influenza Vaccine Completed 07/29/2024, , 08/02/2022, Additional history exists HIB Vaccines Aged Out No longer eligi ble based on patient's age to complete this topic HPV Vaccines Aged Out No longer eligi ble based on patient's age to complete this topic Hepatitis B Vaccines Aged Out No long er eligible based on patient's age to complete this topic IPV Vaccines Aged Out No longer eligi ble based on patient's age to complete this topic MMR Vaccines Aged Out No longer eligi ble based on patient's age to complete this topic Meningococcal ACWY Vaccine Aged Out N o longer eligible based on patient's age to complete this topic RSV Immunization Patients Under 20 months Aged Out No longer eligible based on patient's age to complete this topic Varicella Vaccines Aged Out No longer eligible based on patient's age to complete this topic Procedures Procedure Name Priority Date/Time Associated Diagnosis Comments CBC WITH AUTO DIFFERENTIAL Routine 10/06/2024 9:41 AM EST Crohn's disease of ileum without complication (CMS/HCC) SEDIMENTATION RATE Routine 10/06/2024 9: 41 AM EST Crohn's disease of ileum without complication (CMS/HCC) VITAMIN B12 Routine 10/06/2024 9:41 AM EST Crohn's disease of ileum without complication (CMS/HCC) FOLATE Routine 10/06/2024 9:41 AM EST Crohn's disease of ileum without complication (CMS/HCC) COMPREHENSIVE METABOLIC PANEL Routine 10/06/2024 9:41 AM EST Crohn's disease of ileum without complication (CMS/HCC) CBC AND DIFFERENTIAL Routine 10/06/2024 9:41 AM EST Crohn's disease of ileum without complication (CMS/HCC) COLONOSCOPY Routine 10/02/2023 2:21 PM EST from Last 3 Months or Most Recently Relevant to Health Maintenance Results * (ABNORMAL) CBC auto differential (10/06/2024 9:41 AM EST) WBC 12.3(H) 4.8 - 10.8 K/mcL LAB HEMETOLOGY METHOD 10/06/2024 12:14 PM EST [facility] RBC 4.00 3.80 - 4.80 M/mcL LAB HEMETOLOGY METHOD 10/06/2024 12:14 PM EST [facility] Hemoglobin 13.2 11.5 - 16.0 g/dL LAB HEMETOLOGY METHOD 10/06/2024 12:14 PM [facility] Hematocrit 41.0 35.0 - 47.0 % LAB HEMETOLOGY METHOD 10/06/2024 12:14 PM [facility] MCV 103.0(H) 79.0 - 98.0 FL LAB HEMETOLOGY METHOD 10/06/2024 12:14 PM [facility] MCH 33.2(H) 27.0 - 32.0 pcg LAB HEMETOLOGY METHOD 10/06/2024 12:14 PM [facility] MCHC 32.2 32.0 - 37.0 g/dL LAB HEMETOLOGY METHOD 10/06/2024 12:14 PM [facility] RDW 14.6 11.0 - 15.0 % LAB HEMETOLOGY METHOD 10/06/2024 12:14 PM [facility] Platelets 374 130 - 400 K/mcL LAB HEMETOLOGY METHOD 10/06/2024 12:14 PM [facility] MPV 10.0 7.0 - 11.0 FL LAB HEMETOLOGY METHOD 10/06/2024 12:14 PM [facility] NRBC 0.0 <1.0 % LAB HEMETOLOGY METHOD 10/06/2024 12:14 PM [facility] NRBC Absolute 0.00 <0.10 K/mcL LAB HEMETOLOGY METHOD 10/06/2024 12:14 PM [facility] Neutrophils Relative 61.1 % LAB HEMETOLOGY METHOD 10/06/2024 12:14 PM [facility] Lymphocytes Relative 27.5 % LAB HEMETOLOGY METHOD 10/06/2024 12:14 PM [facility] Monocytes Relative 7.2 % LAB HEMETOLOGY METHOD 10/06/2024 12:14 PM [facility] Eosinophils Relative 3.0 % LAB HEMETOLOGY METHOD 10/06/2024 12:14 PM [facility] Basophils Relative 0.8 % LAB HEMETOLOGY METHOD 10/06/2024 12:14 PM [facility] Immature Granulocytes Relative 0.4 % LAB HEMETOLOGY METHOD 10/06/2024 12:14 PM [facility] Neutrophils Absolute 7.52(H) 1.50 - 7.00 K/mcL LAB HEMETOLOGY METHOD 10/06/2024 12:14 PM [facility] Lymphocytes Absolute 3.38 1.00 - 5.00 K/mcL LAB HEMETOLOGY METHOD 10/06/2024 12:14 PM [facility] Monocytes Absolute 0.89 0.20 - 1.00 K/mcL LAB HEMETOLOGY METHOD 10/06/2024 12:14 PM [facility] Eosinophils Absolute 0.37 0.00 - 0.50 K/mcL LAB HEMETOLOGY METHOD 10/06/2024 12:14 PM [facility] Basophils Absolute 0.10 0.00 - 0.20 K/mcL LAB HEMETOLOGY METHOD 10/06/2024 12:14 PM [facility] Immature Granulocytes Absolute 0.05(H) 0.00 - 0.03 K/mcL LAB HEMETOLOGY METHOD 10/06/2024 12:14 PM [facility] Blood Venous blood specimen / Unknown Venipuncture / Unknown 10/06/2024 9:41 AM EST 10/06/2024 11:29 AM EST Michael Prasad MD LAB BLOOD ORDERABLES [facility] [address] [place] [address], * Sedimentation rate (10/06/2024 9:41 AM EST) Sed Rate 16 0 - 30 mm/hr LAB HEMETOLOGY METHOD 10/06/2024 12:35 PM EST [facility] Blood Venous blood specimen / Unknown Venipuncture / Unknown 10/06/2024 9:41 AM EST 10/06/2024 11:29 AM EST Michael Prasad MD LAB BLOOD ORDERABLES Performing Organization Address City/[facility]/ZIP Co de Phone Number [facility] [address] [place] [address], [place] [phone] * (ABNORMAL) Folate (10/06/2024 9:41 AM EST) [facility] Folate >20.0(H) 2.8 - 17.0 ng/ml LAB CHEMISTRY METHOD 10/06/2024 2:48 PM EST [facility] Blood Venous blood specimen / Unknown Venipuncture / Unknown 10/06/2024 9:41 AM EST 10/06/2024 11:27 AM EST Michael Prasad MD LAB BLOOD ORDERABLES Performing Organization Address [facility]/ZIP Co de Phone Number [facility] [address] [place] [address], [place] [phone] * Vitamin B12 (10/06/2024 9:41 AM EST) [facility] Vitamin B-12 710 250 - 900 pcg/mL LAB CHEMISTRY METHOD 10/06/2024 2:48 PM EST [facility] Blood Venous blood specimen / Unknown Venipuncture / Unknown 10/06/2024 9:41 AM EST 10/06/2024 11:27 AM EST Michael Prasad MD LAB BLOOD ORDERABLES Performing Organization Address City/[facility]/ZIP Co de Phone Number [facility] [address] [place] [address], [place] [phone] * Comprehensive metabolic panel (10/06/2024 9:41 AM EST) Sodium 140 133 - 145 mmol/L LAB CHEMISTRY METHOD 10/06/2024 2:48 PM [facility] Potassium 4.6 3.5 - 5.5 mmol/L LAB CHEMISTRY METHOD 10/06/2024 2:48 PM [facility] Chloride 106 96 - 110 mmol/L LAB CHEMISTRY METHOD 10/06/2024 2:48 PM [facility] CO2 26 21 - 32 mmol/L LAB CHEMISTRY METHOD 10/06/2024 2:48 PM [facility] Anion Gap 8 3 - 11 LAB CHEMISTRY METHOD 10/06/2024 2:48 PM [facility] Glucose 83 70 - 100 mg/dL LAB CHEMISTRY METHOD 10/06/2024 2:48 PM [facility] BUN 21 5 - 25 mg/dL LAB CHEMISTRY METHOD 10/06/2024 2:48 PM [facility] Creatinine 0.87 0.50 - 1.10 mg/dL LAB CHEMISTRY METHOD 10/06/2024 2:48 PM [facility] eGFR 71 >=60 mL/min/1. 73m2 LAB CHEMISTRY METHOD 10/06/2024 2:48 PM [facility] Comment:Calculation based on the??Chronic Kidney Disease Epidemiology Collaboration (CKD-EPI) equation refit??without adjustment for race. BUN/Creatinine Ratio 24.1 LAB CHEMISTRY METHOD 10/06/2024 2:48 PM [facility] Calcium 10.0 8.5 - 10.5 mg/dL LAB CHEMISTRY METHOD 10/06/2024 2:48 PM [facility] AST (SGOT) 16 10 - 42 unit/L LAB CHEMISTRY METHOD 10/06/2024 2:48 PM [facility] ALT (SGPT) 22 10 - 60 unit/L LAB CHEMISTRY METHOD 10/06/2024 2:48 PM EST [facility] Alkaline Phosphatase 61 42 - 121 unit/L LAB CHEMISTRY METHOD 10/06/2024 2:48 PM EST [facility] Total Protein 6.7 6.0 - 8.0 g/dL LAB CHEMISTRY METHOD 10/06/2024 2:48 PM EST [facility] Albumin 3.8 3.2 - 5.0 g/dL LAB CHEMISTRY METHOD 10/06/2024 2:48 PM EST [facility] Total Bilirubin 0.3 0.0 - 1.4 mg/dL LAB CHEMISTRY METHOD 10/06/2024 2:48 PM EST [facility] Blood Venous blood specimen / Unknown Venipuncture / Unknown 10/06/2024 9:41 AM EST 10/06/2024 11:27 AM EST Michael Prasad MD LAB BLOOD ORDERABLES Performing Organization Address City/State/[facility] Co de Phone Number [facility] [address] [place] [address], * COLONOSCOPY (10/02/2023 2:21 PM EST) Anatomical Region Laterality Modality Endoscopy Historical Provider GI~PROCEDURE JESSIAC SAGE from Last 3 Months or Most Recently Relevant to Health Maintenance Care Teams Inspector [employer] Relationship Specialty Start Date End Date Najma Sparks MD [address] [facility] [address] [place] [address] PCP - General Internal Medicine 09/08/24
--- OUTSIDE RECORDS SUMMARY | 2024-12-08 11:23 | XMS_ITS | Encounter Summary ---
[facility] [address] [place] [address] Care Team Providers Care Data Developer Name Role Phone Najma Sparks MD Primary Care Provider Encounter Details Date Type Department Care Team (Late st Contact Info) Description 12/01/2024 Telephone Gastroenterology - [address] [place] [address] Sheri Joaquin MA Social History Tobacco Use Types Packs/Day Years Used Date Smoking Tobacco: Never Smokeless Tobacco: Never Alcohol Use Standard Drinks/Week Comments Yes 0 (1 standard drink = 0.6 oz pur e alcohol) Sex and Gender Information Value Date Recorded Sex Assigned at Female 09/08/2024 2:55 PM EST Gender Identity Female 09/08/2024 2:55 PM EST Sexual Orientation Choose not to disclose 2023 2:55 PM EST Job Start Date Occupation Industry Not on file Not on file Not on file documented as of this encounter Ordered Prescriptions Prescription Sig Dispensed Refills Start Date End Da te mesalamine (LIALDA) 1.2 gram EC tabletIndications:Crohn's disease of ileum without complication (CMS/HCC) Take 2 tablets (2.4 g total) by mouth 2 (two) times a day. Do not crush, chew, or split. 120 each 5 12/03/2024 12/03/2025 documented in this encounter Progress Notes * Faith Sweeney MA - 12/03/2024 3:27 PM EST Switched pt to lialda 1.2 2 po bid * Sheri Joaquin MA - 12/01/2024 11:14 AM EST Pt says she is unable to refill mesalamine 500 er caps she says she has called lots of pharmacies and no one has them. Looked online and it looks like they are not going to be making it anymore. Pt needs something else..ok for about a month.. documented in this encounter Plan of Treatment Not on file documented as of this encounter Visit Diagnoses Diagnosis Colon cancer screening- Primary Special screening for malignant neoplasms, colon Crohn's disease of ileum without complication (CMS/HCC) documented in this encounter Discontinued Medications Medication Sig Discontinue Reason Start Date End Da te mesalamine (PENTASA) 500 mg CR capsuleIndications:Crohn 's disease of ileum without complication (CMS/HCC),Rectal bleeding TAKE 2 CAPSULES (1,000 MG TOTAL) BY MOUTH 3 TIMES A DAY 11/06/2024 12/03/2024 documented as of this encounter Care Teams Data Developer Relationship Specialty Start Date End Date Najma Sparks MD [address] [place] [address] PCP - General Internal Medicine 09/08/24 documented as of this encounter
== END 2024-12-08 12:38 | disposition home or self-care (01) ==
LOC: HO.HOP 10:35
PROVIDERS: Visit Provider Psychiatry & Neurology Psychiatry
DX: F41.1 Generalized anxiety disorder (principal); F41.0 Panic disorder [episodic paroxysmal anxiety]; F33.40 Major depressive disorder, recurrent, in remission, unspecified
CPT/HCPCS: 90833; 99213

== ENCOUNTER → 2024-12-08 10:35 | Outpatient (BNVA) | payer MEDICARE, OTHER, SELFPAY | PROVIDERS: Visit Provider Psychiatry & Neurology Psychiatry | DX: F41.1 Generalized anxiety disorder (principal); F41.0 Panic disorder [episodic paroxysmal anxiety]; F33.40 Major depressive disorder, recurrent, in remission, unspecified; I26.99 Other pulmonary embolism without acute cor pulmonale; E04.1 Nontoxic single thyroid nodule; K50.90 Crohn's disease, unspecified, without complications; Z71.89 Other specified counseling | CPT/HCPCS: 99212 ==

== ENCOUNTER 2025-03-09 10:25 | Outpatient (AMB) | payer MEDICARE, OTHER, SELFPAY ==
--- NOTE | 2025-03-09 10:54 | A.OFFPSYCH_ITS ---
Intake Intake Visit Reasons: depression Allergies azathioprine [Imuran] Allergy (Unknown, Verified 06/03/20 00:00) Pancreatitis metronidazole [Flagyl] Allergy (Unknown, Verified 06/03/20 00:00) HPI- Psychiatric Chief Complaint: depression HPI Narrative: Seems to be doing better since she has been back to work on a regular basis. Pt has been doing well ongoing patient on olanzapine 1.25 mg at bedtime appears to continue to be helpful no abnormal movements noted by patient she is aware of chronic tardive dyskinesia risks. She is seen with her . Mood stable able to enjoy things adequate concentration and energy.. Past Psychiatric History: The patient has a history of chronic anxiety panic disorder and depression which developed after surgery for Crohn's disease a partial colon resection many years ago. Was stable for many years then developed a treatment resistant agitated depression that eventually responded to a combination of Trintellix 20 mg olanzapine alprazolam and TMS otherwise had failed multiple other antidepressant trial Assessment and Plan Assessment & Plan (1) Generalized anxiety disorder: Status: Acute Code(s): F41.1 - Generalized anxiety disorder (2) Panic disorder [episodic paroxysmal anxiety]: Status: Acute Code(s): F41.0 - Panic disorder [episodic paroxysmal anxiety] (3) Major depressive disorder, recurrent, in remission: Status: Acute Code(s): F33.40 - Major depressive disorder, recurrent, in remission, unspecified Plan Continue plan of care patient has done well on a combination of Trintellix and olanzapine has also had TMS. No complaints of side effects mood stable doing well at work continue plan of care Medications: Refilled atenolol 25 mg PO DAILY 90 tabs 1RF olanzapine (Zyprexa) 2.5 mg PO DAILY 90 tabs 1RF 90 days Trintellix (vortioxetine) 20 mg PO DAILY 90 tabs 1RF NS Counseling and coordination of Care Medication management counseling: Effectiveness and Side effects Diagnosis and Prognosis Counseling: Adequacy of current interventions Details-Diagnosis/Prognosis counseling: Patient does best when staying active Details: I spent [30] minutes reviewing the record, seeing the patient and documenting in the medical record. Counseling provided to the patient/caregiver as outlined below. Addressed patient/caregiver concerns regarding current medication regime including effective adherence. Addressed patient/caregiver concerns regarding diagnosis and prognosis including accuracy of diagnosis, prognosis over time, impact of diagnosis. Addressed patient/caregiver concerns regarding impact of recent stressors. [facility] Medical History (Updated 07/08/24 @ 15:44 by Alan Martin MD) Thyroid nodule Crohn disease Panic disorder [episodic paroxysmal anxiety] Generalized anxiety disorder Social History: PATIENT LIVES WITH HER HAS 2 CHILDREN 1 IN [place]. 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
--- OUTSIDE RECORDS SUMMARY | 2025-03-09 11:47 | XMS_ITS | Clinical Summary ---
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 4 Active loperamide (IMODIUM A-D) 2 mg tablet Take 2 tablets (4 mg total) by mouth. 3 Active ALPRAZolam (XANAX) 0.25 mg tablet Take 1 tablet (0.25 mg total) by mouth. 0 Active Trintellix 20 mg tablet Take 1 tablet (20 mg total) by mouth 1 (one) time each day. 4 Active Xarelto 20 mg tablet TAKE 1 TABLET BY MOUTH EVERY DAY WITH SUPPER Active OLANZapine (ZyPREXA) 2.5 mg tablet Take 1 tablet (2.5 mg total) by mouth 1 (one) time each day. 4 Active cyanocobalamin (VITAMIN B-12) 1,000 mcg/mL injection INJECT 1 ML ONCE A MONTH 4 Active acetaminophen (TYLENOL 8 HOUR) 650 mg 8 hr tablet Take 1 tablet (650 mg total) by mouth every 8 (eight) hours if needed for mild pain. Do not crush, chew, or split. Active atenoloL (TENORMIN) 25 mg tablet Take 1 tablet (25 mg total) by mouth 1 (one) time each day. 4 Active folic acid (FOLVITE) 1 mg tablet Take 1 tablet (1 mg total) by mouth 1 (one) time each day. 90 each 3 4 10/06/20 25 Active syringe with needle (BD Luer-Tracie Syringe) 3 mL 25 gauge x 1 syringeIndication s:Crohn's disease of ileum without complication ([facility] V24, CMS/[facility] V28) USE 1 SYRINGE DIRECTED ONCE A MONTH 12 each 3 4 Active mesalamine (LIALDA) 1.2 gram EC tabletIndications :Crohn's disease of ileum without complication (CMS/[facility] V24, CMS/[facility] V28) Take 2 tablets (2.4 g total) by mouth 2 (two) times a day. Do not crush, chew, or split. 120 each 5 5 12/03/19 26 Active cyanocobalamin (VITAMIN B-12) 1,000 mcg/mL injectionIndicati ons:Crohn's disease of ileum without complication ([facility] V24, CMS/[facility] V28) INJECT 1 ML UNDER THE SKIN 1 TIME PER WEEK. INJECT DIRECTED 12 mL 1 5 Active Active Problems Problem Noted Date Diagnosed Date Crohn's disease of ileum wit hout complication ([facility] V24, [facility] V28) 10/06/2024 Assessment & Plan (10/06/2024 9:43 AM [...] from her known hemorrhoidal disease. Less likely [place] concerned that she has a flare of [...] instructed to contact me sooner with issues. Surgical History Surgery Date Site/Laterality Comments BLADDER SUSPENSION HEMICOLECTOMY Right With ileal resection COLONOSCOPY 09/05/2023 - 10/04/2023 Medical History Medical History Date Comments Crohn's disease of small intestine (CMS/HCC V24, CMS/HCC V28) Ovarian cyst Adrenal nodule (CMS/HCC V24) Anxiety Basal cell carcinoma Vitamin B 12 deficiency IBS (irritable bowel syndrome) Pulmonary embolism (CMS/HCC V24, CMS/HCC V28) Family History Medical History Relation Name Comments Breast cancer Other Colon cancer Other Relation Name Status Comments Other Social History Tobacco Use Types Packs/Day Years Used Date Smoking Tobacco: Never Smokeless Tobacco: Never Tobacco Cessation:Counseling Given: Not Answered Alcohol Use Standard Drinks/Week Comments Yes 0 (1 standard drink = 0.6 oz pur e alcohol) Comments Unknown Sex and Gender Information Value Date Recorded Sex Assigned at Female 09/08/2024 2:55 PM EST Legal Sex Female 2:53 PM EST Gender Identity Female 09/08/2024 2:55 PM EST Sexual Orientation Choose not to disclose 2023 2:55 PM EST Obstetrics History Last Filed Vital Signs Vital [...] Last Done Comments Breast Cancer Screening 1950 Cholesterol Screening (Lipid Panel) 09/09/2024 Depression Screening 09/09/2024 Falls Risk Assessment 09/09/2024 Hepatitis C Screening 09/09/2024 Medicare Annual Wellness Visit 09/09/2024 Osteoporosis Screening (Bone Density Screening) 09/09/2024 Social Influencers of Health Screening 09/09/2024 COVID-19 Vaccine (9 - Pfizer risk season) 2025 07/18/2024, 02/01/2024, 07/26/2023, Additional history exists DTaP,Tdap,and Td Vaccines (2 - Td or Tdap) 07/12/2032 07/12/2022 Colorectal Cancer Screening: Colonoscopy 10/02/2033 10/02/2023 Pneumococcal Vaccine: 50+ Years Completed 10/14/2020, 10/14/2019, 10/14/2019 Zoster Vaccines Completed 08/25/2021, 05/05, 07/13/2016 RSV Immunization Adult Patients Completed 10/21/2023 Influenza Vaccine Completed 07/29/2024, , 08/02/2022, Additional history exists HIB Vaccines Aged Out No longer eligi ble based on patient's age to complete this topic HPV Vaccines Aged Out No longer eligi ble based on patient's age to complete this topic Hepatitis A Vaccines Aged Out No long er eligible [...] patient's age to complete this topic Meningococcal B Vaccine Aged Out No l onger eligible based on patient's age to complete this topic RSV Immunization Patients Under 20 months Aged Out No longer eligible based on patient's age to complete this topic Varicella Vaccines Aged Out No longer eligible based on patient's age to complete this topic Procedures Procedure Name Priority Date/Time Associated Diagnosis Comments COLONOSCOPY Routine 10/02/2023 2:21 PM EST from Last 3 Months or Most Recently Relevant to Health Maintenance Results * COLONOSCOPY (10/02/2023 2:21 PM EST) Anatomical Region Laterality Modality Endoscopy us Historical Provider MD [place]ACE~PROCEDURE ORDERABLES F inal Result from Last 3 Months or Most Recently Relevant to Health Maintenance Insurance MEDICARE [facility] Care Teams Frame Pulley Mortising Machine Operator Relationship Specialty Start Date End Date Najma Sparks MD [address] [facility] [address] [place] [address] PCP - General Internal Medicine 09/08/24
== END 2025-03-09 11:37 | disposition home or self-care (01) ==
LOC: HO.HOP 10:25
PROVIDERS: Visit Provider Psychiatry & Neurology Psychiatry
DX: F41.1 Generalized anxiety disorder (principal); F41.0 Panic disorder [episodic paroxysmal anxiety]; F33.40 Major depressive disorder, recurrent, in remission, unspecified
CPT/HCPCS: 99214

== ENCOUNTER → 2025-03-09 10:25 | Outpatient (BNVA) | payer MEDICARE, OTHER, SELFPAY | PROVIDERS: Visit Provider Psychiatry & Neurology Psychiatry | DX: F41.1 Generalized anxiety disorder (principal); F41.0 Panic disorder [episodic paroxysmal anxiety]; F33.40 Major depressive disorder, recurrent, in remission, unspecified; Z71.89 Other specified counseling | CPT/HCPCS: 99212 ==

== ENCOUNTER 2025-08-03 11:17 | Outpatient (AMB) | payer MEDICARE, OTHER, SELFPAY ==
--- NOTE | 2025-08-03 12:30 | A.OFFPSYCH_ITS ---
Intake Intake Visit Reasons: depression Allergies azathioprine (Imuran) Allergy (Unknown, Verified 06/03/20 00:00) Pancreatitis metronidazole (Flagyl) Allergy (Unknown, Verified 06/03/20 00:00) Medication List - Last Reconciled 08/03/25 by Alan Martin MD alprazolam 1/2-1 orally 3 times a day PRN; atenolol 25 mg PO DAILY cyanocobalamin (vitamin B-12) 1,000 mcg subcut folic acid 1 mg PO DAILY mesalamine ER (Pentasa) 1,000 mg PO TID olanzapine (Zyprexa) 2.5 mg PO DAILY 90 days rivaroxaban (Xarelto) 20 mg PO DAILY Trintellix (vortioxetine) 20 mg PO DAILY NS varenicline tartrate (Chantix Starting Month Box) PO PER PKG DIR HPI- Psychiatric Chief Complaint: depression HPI Narrative: The patient is a 75-year-old female with a long history of recurrent anxiety and past history of severe depression with anxiety that returns for follow-up. In the past patient had difficulty after detention and also in association with Crohn's disease. The patient is having upcoming right reverse shoulder surgery in has a good deal of stress and anxiety appropriate anxiety about it and how she will recover. She will be out of work for a number of weeks if not months. 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 Patient continues on olanzapine 1.25 mg alprazolam half tab t.i.d. she is also on atenolol 25 mg daily Trintellix 20 mg a day. In the past did respond well to the addition of TMS and is aware that that could be a future treatment if needed. Patient does tend to be a chronic worrier and in the past this has led her to be quite depressed she had done better when returning to work Past Psychiatric History: The patient has a history of chronic anxiety panic disorder and depression which developed after surgery for Crohn's disease a partial colon resection many years ago. Was stable for many years then developed a treatment resistant agitated depression that eventually responded to a combination of Trintellix 20 mg olanzapine alprazolam and TMS otherwise had failed multiple other antidepressant trial Mental Status Exam Mental Status Exam Narrative: Patient somewhat anxious and stressed looking in appearance concerns about upcoming surgery and concerns regarding potential use of oxycodone postop Patient Appearance: Well Grooomed Patient Orientation: Person, Place, Time and Situation Level of Consciousness: Awake and Appropriate Patient Behavior: Appropriate and Good Eye Contact Mood Description: Apprehensive Affect Description: Constricted and Apprehensive Patient Cognition Impaired: No Ability to Follow Directions: Good Speech Pattern: Clear Memory Description: Intact Hallucinations: None Delusions: Not Present Thought Process: Intact and Goal Oriented Thought Content: positive for Goal Oriented, positive for Preoccupation, negative for Suicidal Ideation or negative for Homicidal Ideation Judgement and Insight: Patient is PHQ-9 is 7 BRADEN is 10 Assessment and Plan Assessment & Plan (1) Generalized anxiety disorder: Status: Acute Code(s): F41.1 - Generalized anxiety disorder Plan Patient seem with her . She is future oriented in generally continues to do much better than a couple of years ago when she had been chronically depr essed and anxious. She has some anxiety about upcoming reverse shoulder surgery in her right arm right shoulder tomorrow and will be out of work for an extended period of time. 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 Did discuss option of an appointment remotely if needed otherwise continue Trintellix alprazolam monitor for over- sedation patient can increase olanzapine back to 2.5 mg if she starts to become increasingly ruminating and depressed currently she is taking 1.25 mg. No evidence of tardive dyskinesia on exam no orofacial dyskinesia patient is aware of risks benefits Medications: Refilled atenolol 25 mg PO DAILY 90 tabs 1RF alprazolam 1/2-1 orally 3 times a day PRN; 70 tabs 3RF anxiety Counseling and coordination of Care Details-Self Mgmt counseling: Strategies to manage mental health pulse. Medication management counseling: Effectiveness, Side effects and Dosing range Diagnosis and Prognosis Counseling: Adequacy of current interventions Details: I spent [40] minutes reviewing the record, seeing the patient and documenting in the medical record. Counseling provided to the patient/caregiver as outlined below. Addressed patien t/caregiver concerns regarding current medication regime including effective adherence. Addressed patient/caregiver concerns regarding diagnosis and prognosis including accuracy of diagnosis, prognosis over time, impact of diagnosis. Addressed patient/caregiver concerns regarding impact of recent stressors. [facility] Medical History (Updated 07/08/24 @ 15:44 by Alan Martin MD) Thyroid nodule Crohn disease Panic disorder [episodic paroxysmal anxiety] Generalized anxiety disorder Social History: PATIENT LIVES WITH HER HAS 2 CHILDREN 1 IN [place]. 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
--- OUTSIDE RECORDS SUMMARY | 2025-08-03 12:47 | XMS_ITS | Clinical Summary ---
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 DO NOT CRUSH, CHEW, OR SPLIT. 360 tablet 1 5 Active cyanocobalamin (VITAMIN B-12) 1,000 mcg/mL injectionIndicati ons:Crohn's disease of ileum without complication ([facility] V24, [facility] V28) INJECT 1 ML UNDER THE SKIN 1 TIME PER WEEK DIRECTED 12 mL 3 5 Active Active Problems Problem Noted Date Diagnosed Date Crohn's disease of ileum wit hout complication ([facility] V24, [facility] V28) 10/06/2024 Assessment & Plan (10/06/2024 9:43 [...] from her known hemorrhoidal disease. Less likely [place] concerned that she has a flare of [...] Last Done Comments Breast Cancer Screening 1950 Falls Risk Assessment 09/09/2024 Hepatitis C Screening 09/09/2024 Medicare Annual Wellness Visit 09/09/2024 Osteoporosis Screening (Bone Density Screening) 09/09/2024 Social Influencers of Health Screening 09/09/2024 Depression Screening 11/05/2024 COVID-19 Vaccine (9 - Pfizer risk season) 2025 07/18/2024, 02/01/2024, 07/26/2023, Additional history exists Influenza Vaccine (#1) 2025 , 07/26/2023, 08/02/2022, Additional history exists DTaP,Tdap,and Td Vaccines (2 - Td or Tdap) 07/12/2032 07/12/2022 Colorectal Cancer Screening: Colonoscopy 10/02/2033 10/02/2023 Pneumococcal Vaccine: 50+ Years Completed 10/14/2020, 10/14/2019, 10/14/2019 Zoster Vaccines Completed 08/25/2021, 05/05, 07/13/2016 RSV Immunization Adult Patients Completed 10/21/2023 HIB Vaccines Aged Out No longer eligi [...] Region Laterality Modality Endoscopy us Historical Provider GI~PROCEDURE ORDERABLES F inal Result from Last 3 Months or Most Recently Relevant to Health Maintenance Insurance MEDICARE [facility] Care Teams Slitter And Cutter Operator Relationship Specialty Start Date End Date Najma Sparks MD [address] [facility] [address] [place] [address] PCP - General Internal Medicine 09/08/24
== END 2025-08-03 13:07 | disposition home or self-care (01) ==
LOC: HO.HOP 11:17
PROVIDERS: Visit Provider Psychiatry & Neurology Psychiatry
DX: F41.1 Generalized anxiety disorder (principal)
CPT/HCPCS: 90833; 99213

== ENCOUNTER → 2025-08-03 11:17 | Outpatient (BNVA) | payer MEDICARE, OTHER, SELFPAY | PROVIDERS: Visit Provider Psychiatry & Neurology Psychiatry | DX: F41.1 Generalized anxiety disorder (principal) | CPT/HCPCS: 99212 ==